=== PATIENT | male | born 1950 | race Caucasian/White ===

== ENCOUNTER 2018-07-29 13:58 | Inpatient (IN) ==
[2018-07-29] MEDS ORDERED: Naloxone 0.4 MG/ML INJ IVP PRN ×2 (16:17→17:14)
--- NOTE | 2018-07-29 16:26 | Internal Med History&Physical ---
<Kim Galvez - Last Filed: 07/29/18 18:29> Date of Encounter: 07/29/18 Time of Encounter: 16:24 Internal Medicine - H&P: HPI Chief complaint: Shortness of breath Admitted From: Hospital to Hospital Transfer (From [facility]) Plans for Post Hospital Care: Transfer [facility] History of present illness: Mr. 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 Apparently the patient's trach size was change from 6 to 8 by the ENT physician Dr. Ny last week. Upon review of medical records from [facility] he initially presented to the ED complaining of shortness of breath. He had increased congestion and cough of the past 3 days. Initial vitals were BP 131/62, SpO2 95% on room air, RR 17, temperature 98.7F. Chest x-ray showed mild congestive heart failure. Initial labs 07/27/2018 Potassium 3.4, sodium 133, cardiac enzymes normal, WBC 15. UA unremarkable. He was admitted for acute diastolic heart failure exacerbation and acute bronchitis, and that was treated for aspiration pneumonia after aspirating food multiple times while in patient. The patient was given IV Solu-Medrol 40 Q8H, Zosyn, Lasix 60 mg Q12H. Labs on 07/29/2018: WBC 13.9, hemoglobin 12.2, sodium 137, potassium 2.9, creatinine 0. 94. Upon my examination of the patient he reported that he went to [facility] primarily due to difficulty eating because of choking with the recent change of his trach size. He stated that about 3 weeks ago his trach size was changed from 8 to and 6 by physician in the [place] [facility] office. After that change in size he had an air leak around the trach that never closed up so then a week ago he went back to the office and Dr. Ny changed the size back from 6 to 8. He said that at that change they did not have a valve at the time and since then he has to use his fingers to work as the valve had. He has difficulty breathing at night because the valve closes. He also has difficulty swallowing food and often coughs up food even when his pures it. He reported having increased shortness of breath for 2 weeks along with increased lower extremity edema for a few months. He admits to productive cough of food and sometimes quite sputum. He is supposed to be taking Lasix daily however he is noncompliant and has not taken it for multiple weeks due to he is incontinence in it worsens it. He denies fever, chills, malaise, myalgias, nausea, vomiting, chest pain, palpitations abdominal pain. He stated that he has been admitted in the past for aspiration pneumonia a long time ago. He resides at home with his and is wheelchair-bound and cannot walk. 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 The last time he had steroids to treat the rash was over 2 months ago. He denies smoking, drug use, alcohol use. He has family history of mother having [place]. He is a full code. Past Med Surg Social Fam HX - Past Medical History Attestation: Yes The following information was validated with the patient. Source: patient Medical history: arthritis, DVT, diabetes, hyperlipidemia, hypertension, pulmonary embolus, thyroid disease, other Additional medical history: right leg cellulitis 11/13/16, alfredo/alfredo disease, sleep apnea Psychiatric history: no psych history - Past Surgical History Surgical History: tracheostomy Additional surgical history: trach due to sleep apnea, reversal - Social History Smoking Status: Never smoker Smokeless Tobacco Status: No Alcohol use: none Drug use: none - Family History Daughter Living Status: Hx Family Cardiac Disorders: Yes Hx Family Endocrine Disorder: Yes Father Living Status: Hx Family Cardiac Disorders: Yes Internal Medicine - H&P: Meds Atorvastatin [Lipitor] 40 mg PO HS 08/23/16 [History] Citalopram [CeleXA] 30 mg PO DAILY 08/23/16 [History] Hydrochlorothiazide [Microzide] 25 mg PO DAILY 08/23/16 [History] Insulin NPH Hum/Reg Insulin Hm [Humulin 70/30 Kwikpen] 50 unit SQ HS 08/23/16 [History] Insulin NPH Hum/Reg Insulin Hm [Humulin 70/30 Kwikpen] 70 unit SQ QAM 08/23/16 [History] Levothyroxine [Synthroid] 50 mcg PO 0630 08/23/16 [History] Tramadol HCl [Ultram] 50 mg PO BID PRN 08/23/16 [History] Warfarin [Coumadin] 9 mg PO 1800 08/23/16 [History] Fexofenadine/Pseudoephedrine [Nova-D 24 Hour Tablet] 1 each PO DAILY 01/19/18 [History] Losartan [Cozaar] 100 mg PO DAILY 01/19/18 [History] Aspirin [Lo-Dose Aspirin EC] 81 mg PO DAILY 07/29/18 [History] Citalopram Hydrobromide [Citalopram HBr] 20 mg PO BID 07/29/18 [History] Clobetasol Propionate 0.05% 1 appl BID 07/29/18 [History] Furosemide [Lasix] 40 mg PO DAILY 07/29/18 [History] Humulin 70-30 Vial 65 units SQ HS 07/29/18 [History] Humulin 70-30 Vial 80 units SQ QAM 07/29/18 [History] Hydroxyzine HCl 10 mg PO DAILY 07/29/18 [History] Xarelto 20 mg PO DAILY 07/29/18 [History] Allergy/AdvReac Type Severity Reaction Status Date / Time No Known Allergies Allergy Verified 11/16/16 12:41 All Systems PM: A 10-system review of systems was performed and is negative for pertinent findings except as documented above in the HPI. - Constitutional Constitutional: no chills, no fever(s) - EENT Eyes: no change in vision Nose, mouth and throat: dysphagia, no odynophagia - Cardiovascular Cardiovascular ROS IM: edema, no chest pain, no diaphoresis, no palpitations - Respiratory Respiratory: cough, dyspnea, change in phlegm color, no wheezing - Gastrointestinal Gastrointestinal: no abdominal pain, no nausea, no vomiting - Genitourinary Genitourinary ROS male: urinary incontinence, no dysuria - Integumentary Integumentary IM: skin ulcer (Right heel) - Neurological Neurological ROS: no disequilibrium, no dizziness - Constitutional Exam: Gen.: Vitals noted. No acute distress. AAOx3, morbidly obese HEENT: oropharynx clear, Normocephalic, atraumatic Neck: trach collar Cardiac: RRR, no murmur, +S1/S2 Pulmonary: CTA bilaterally, no wheezes, rales or rhonchi, equal chest expansion Abdomen: soft, nontender, Bowel sounds noted, no guarding MSK: no joint swelling noted, Extremities: +1 BLE edema, nontender calf, no cyanosis or clubbing, venous stasis dermatitis Neuro: A&Ox3, moves all extremities, no focal deficits Psych: Appropriate mood and behavior Internal Med - H&P Results - Labs CBC & Chem 7: 07/29/18 16:36 07/29/18 16:36 - Assessment and Plan (1) Acute respiratory failure Current Visit: Yes Status: Acute Assessment and plan: Patient presented with acute respiratory failure those likely precipitated by aspiration pneumonia secondary to dysphagia with foods and presumed acute on chronic congestive heart failure exacerbation as the patient has had increased s hortness breath of the past 2 weeks and bilateral lower extremity edema for the past few months. -SpO2 95% on 6 L with trach collar -afebrile, hemodynamically stable -WBC 14.3 -VBG: pH 7.5, CO2 40, O2 137, HCO3 31 -CXR demonstrated low lung volumes no cardio pulmonary process Plan -continue Zosyn -continue Solu-Medrol 40 IV daily -continue Lasix 40 IV daily -duonebs PRN -echocardiogram ordered -strep/legionella ordered -sputum culture ordered -continue supplemental oxygen with tracheostomy Qualifiers: Respiratory failure complication: hypoxia Qualified Code(s): J96.01 - Acute respiratory failure with hypoxia (2) Dysphagia Current Visit: Yes Status: Acute Assessment and plan: Patient reports having dysphagia since his trach size was changed. The patient's trach size was change from 6 to 8 by the ENT physician Dr. Ny last week a nd since then he is had dysphagia. He has difficulty swallowing even pured foods. Plan - ENT his consulted to evaluate the patient. With recommendations for speech therapy to place a paayeruir valve. -Will have speech therapy evaluate the patient and place a paayeruir valve. -NPO Qualifiers: Dysphagia type: pharyngeal phase Qualified Code(s): R13.13 - Dysphagia, pharyngeal phase (3) Aspiration pneumonia Current Visit: Yes Status: Acute Assessment and plan: Concern for aspiration pneumonia as he has been having dysphagia with food even pured foods. -Chest x-ray low lung volumes and no cardio pulmonary process. -NPO -continue Zosyn -speech therapy consulted to place valve Qualifiers: Aspiration pneumonia type: due to regurgitated food Qualified Code(s): J69.0 - Pneumonitis due to inhalation of food and vomit (4) H/O tracheostomy Current Visit: Yes Status: Acute Assessment and plan: History of tracheostomy secondary to STEPHANIE patient reports. Follows in the [place] [facility] office. Recent tracheostomy size change. (5) CHF exacerbation Current Visit: Yes Status: Acute Assessment and plan: Concern for congestive heart failure exacerbation. He has increased shortness of breath and lower extremity edema. He is supposed to be taking Lasix however he is noncompliant due to incontinence. He denies history of having congestive heart failure. -Chest x-ray at [place] demonstrated findings suggestive of CHF exacerbation -troponin's negative -EKG reviewed and should NSR, left axis deviation, poor are wave progression. No ST or T wave changes indicating ischemia -bilateral lower extremities had +1 edema Plan -continue diuresis with Lasix 40 IV daily -echocardiogram pending -strict I&O -will follow fluid restrictive diet however he is NPO now Qualifiers: Heart failure type: unspecified Qualified Code(s): I50.9 - Heart failure, unspecified (6) Hypokalemia Current Visit: Yes Status: Acute Assessment and plan: Hypokalemia with potassium of 3.1 at admission. -Magnesium 1.6 -will supplement both potassium and magnesium -will continue to monitor (7) Hadley-hadley disease Current Visit: Yes Status: Acute Assessment and plan: History of Hadley Hadley disease for which she has rash and skin breakdown in the axilla and skin folds. He follows with a narcotics agent will prescribe him steroids for about a week. Last time he had steroids was over 2 months ago. (8) Diabetes Current Visit: Yes Status: Acute Assessment and plan: History of diabetes taking insulin. -Glucose stable -continue Accu check -low-dose sliding scale insulin -currently NPO but will plan for diabetic diet when able Qualifiers: Diabetes mellitus type: type 2 Diabetes mellitus correction insulin use: correction use Qualified Code(s): E11.9 - Type 2 diabetes mellitus without complications; Z79.4 - meterman (current) use of insulin (9) Morbid obesity Current Visit: Yes Status: Acute Assessment and plan: Lifestyle changes. Patient does not walk and his wheelchair-bound. -PT/OT to evaluate (10) History of pulmonary embolus (PE) Current Visit: Yes Status: Acute Assessment and plan: Patient history of DVT and PE taking Xarelto. Continue home medication (11) Open wound of heel Current Visit: Yes Status: Acute Assessment and plan: Right heel wound on admission. He has been treating at home. -Consult wound care to manage heel wound Qualifiers: Encounter type: initial encounter Laterality: right Qualified Code(s): S91.301A - Unspecified open wound, right foot, initial encounter (12) DVT prophylaxis Current Visit: Yes Status: Acute Assessment and plan: On Xarelto (13) Hypertension Current Visit: Yes Status: Acute Assessment and plan: History of hypertension taking losartan. -Blood pressure stable -Patient is NPO so will order PRN Lopressor Qualifiers: Hypertension type: essential hypertension Qualified Code(s): I10 - Essential (primary) hypertension - Time Spent With Patient Total time spent is greater than 50% in coordination of care (as documented) at patient's floor/unit and/or counseling patient: <Jennifer Bales - Last Filed: 07/30/18 07:16> Date of Encounter: 07/30/18 Internal Medicine - H&P: HPI History of present illness: Mr. Bautista is a 68 year old male All Systems PM: A 10-system review of systems was performed and is negative for pertinent findings except as documented above in the HPI. - Constitutional Vitals: Temp Pulse Resp BP Pulse Ox 98.6 F 82 18 105/77 93 07/30/18 05:08 07/30/18 05:08 07/30/18 05:08 07/30/18 05:08 07/30/18 05:08 Internal Med - H&P Results - Labs CBC & Chem 7: 07/29/18 16:36 07/29/18 16:36 Labs: Short CBC 07/29/18 Range/Units 16:36 WBC 14.3 H (4.3-11.1) K/mcL Hgb 12.3 L (12.9-16.9) g/dL Hct 38.2 (37.5-50.1) % Plt Count 310 (140-400) K/mcL Neutrophils # 12.7 H (1.6-8.9) K/mcL BMP 07/29/18 16:36 Sodium 140 Potassium 3.1 L Chloride 96 L Carbon Dioxide 32 H BUN 26 H Creatinine 1.00 Glucose 152 H Calcium 9.2 Liver Function 07/29/18 Range/Units 16:36 Total Bilirubin 0.4 (0.3-1.0) mg/dL AST 11 L (13-39) Units/L ALT 11 (7-52) Units/L Alkaline Phosphatase 72 (34-104) Units/L Albumin 3.4 L (3.5-5.7) g/dL - ABG Interpretation ABG results: 07/29/18 16:49 VBG pH 7.50 H VBG pCO2 40 L VBG pO2 137 H VBG HCO3 31 H - Impressions ITS Impressions Chest X-Ray 07/29/18 16:42 IMPRESSION: Low lung volumes. No acute cardiopulmonary disease. 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 use: with middle or intermediate school principal use Qualified Code(s): E11.9 - Type 2 diabetes mellitus without complications; Z79.4 - [facility]CI (current) use of insulin (3) History of pulmonary embolus (PE) Current Visit: Yes Status: Acute (4) DVT prophylaxis Current Visit: Yes Status: Acute (5) Dysphagia Current Visit: Yes Status: Acute Qualifiers: Dysphagia type: pharyngeal phase Qualified Code(s): R13.13 - Dysphagia, pharyngeal phase (6) Acute respiratory failure Current Visit: Yes Status: Acute Qualifiers: Respiratory failure complication: hypoxia Qualified Code(s): J96.01 - Acute respiratory failure with hypoxia (7) CHF exacerbation Current Visit: Yes Status: Acute Qualifiers: Heart failure type: unspecified Qualified Code(s): I50.9 - Heart failure, unspecified (8) Aspiration pneumonia Current Visit: Yes Status: Acute Qualifiers: Aspiration pneumonia type: due to regurgitated food Qualified Code(s): J69.0 - Pneumonitis due to inhalation of food and vomit (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 (10) Morbid obesity Current Visit: Yes Status: Acute (11) Hypokalemia Current Visit: Yes Status: Acute (12) Open wound of heel Current Visit: Yes Status: Acute Qualifiers: Encounter type: initial encounter Laterality: right Qualified Code(s): S91.301A - Unspecified open wound, right foot, initial encounter (13) Hypertension Current Visit: Yes Status: Acute Qualifiers: Hypertension type: essential hypertension Qualified Code(s): I10 - Essential (primary) hypertension - Time Spent With Patient Total time spent is greater than 50% in coordination of care (as documented) at patient's floor/unit and/or counseling patient: - Attending Attestation I examined this patient and my medical decision-making was reviewed with the Resident Physician Dr Galvez. I agree with the documented findings, disposition and treatment plan as described except to the extent set forth below. Mr Bautista was transferred from [place] and is being admitted for respiratory failure and suspected aspiration pna with dysphagia awake, pleasant, no sob currently. denies any wheezing, + sputum white/yellow, + le edema. denies any chest pain, pressure, palpitations, calf pain. no prior hx chf though was started on lasix outpt for le edema gen- alert, awake,appears stated age eyes- pupils equal round cv- reg rate and rhythm, normal s1,s2, no murmurs appreciated, trace pitting le edema lungs- ctabl, diminsihed throughout, no wheezing, rhonchi or crackles, normal resp effort on trach collar abd- soft, non tender, non distended, + bs neuro- AAOx3, CN grossly intact Acute hypoxic resp failure as evidenced by O2 requirement (none at home) Suspected Aspiration pna ruled out ACS, PE unlikely given anticoagulated possible CHF, no prior hx possibly related to recent trach change (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) -cont zosyn, repeat CXR, attempt to ID organism -no prior echo,check here, cont IV lasix -ekg done today without acute ischemic changes, trops neg at OSH -cont o2 trach collar -ENT Dr Ramirez notified prior to transfer and to be notified by bed management pt here, consult eval pending Aspiration suspected as reported by OSH as being witnessed/suction food from trach- keep npo, ent eval then after will obtain family practice doctor eval, avioding any po meds that are not essential tonight, was taking po meds with applesauce at OSH Hypokalemia- IV repletion DM- SSI, prn hypoglycemics DVT/PE hx on AC- cont xarelto Hadley- Hadley Disease- wound care c/s Morbid Obesity BMI 48.5- lifestyle modifications, pcp follow up, nutrition further dx and plan as noted by resident
--- NOTE | 2018-07-29 16:37 | Event Note ---
Date of Encounter: 07/29/18 Time of Encounter: 17:15 to serve as attending attestation pending completion of resident H&P I examined this patient and my medical decision-making was reviewed with the Resident Physician Dr Galvez. I agree with the documented findings, disposition and treatment plan as described except to the extent set forth below. Mr Bautista was transferred from [place] and is being admitted for respiratory failure and suspected aspiration pna with dysphagia awake, pleasant, no sob currently. denies any wheezing, + sputum white/yellow, + le edema. denies any chest pain, pressure, palpitations, calf pain. no prior hx chf though was started on lasix outpt for le edema gen- alert, awake,appears stated age eyes- pupils equal round cv- reg rate and rhythm, normal s1,s2, no murmurs appreciated, trace pitting le edema lungs- ctabl, diminsihed throughout, no wheezing, rhonchi or crackles, normal resp effort on trach collar abd- soft, non tender, non distended, + bs neuro- AAOx3, CN grossly intact Acute hypoxic resp failure as evidenced by O2 requirement (none at home) Suspected Aspiration pna ruled out ACS, PE unlikely given anticoagulated possible CHF, no prior hx possibly related to recent trach change (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) -cont zosyn, repeat CXR, attempt to ID organism -no prior echo,check here, cont IV lasix -ekg done today without acute ischemic changes, trops neg at OSH -cont o2 trach collar -ENT Dr Ramirez notified prior to transfer and to be notified by bed management pt here, consult eval pending Aspiration suspected as reported by OSH as being witnessed/suction food from trach- keep npo, ent eval then after will obtain operations planner eval, avioding any po meds that are not essential tonight, was taking po meds with applesauce at OSH Hypokalemia- IV repletion DM- SSI, prn hypoglycemics DVT/PE hx on AC- cont xarelto Keyla- Keyla Disease- wound care c/s Morbid Obesity BMI 48.5- lifestyle modifications, pcp follow up, nutrition further dx and plan as noted by resident
[2018-07-29 16:45] LABS: Basophils % 0.1 %; Hematocrit 38.2 % (37.5-50.1); Hemoglobin 12.3 g/dL (12.9-16.9); Immature Granulocytes % 0.4 % (0-4); Lymphocytes # 0.9 K/mcL (0.6-4.6); Lymphocytes % 6.3 %; Mean Corpuscular HGB Conc 32.2 g/dL (31.6-35.5); Mean Corpuscular Hemoglobin 25.6 pg (28.0-33.3); Mean Corpuscular Volume 79.4 fL (83.0-100.0); Monocytes # 0.7 K/mcL (0.0-1.3); Monocytes % 4.8 %; Neutrophils # 12.7 K/mcL (1.6-8.9); Platelet Count 310 K/mcL (140-400); Red Blood Count 4.81 M/mcL (4.19-5.50); Red Cell Distribution Width 15.6 % (11.5-14.5); Segmented Neutrophils % 88.4 %; White Blood Count 14.3 K/mcL (4.3-11.1)
[2018-07-29 16:51] LABS: VBG HCO3 31 mEq/L (21-27); VBG PCO2 40 mmHg (41-51); VBG PO2 137 mmHg (25-50)
[2018-07-29 16:53] LABS: INR 1.4; Prothrombin Time 15.4 Seconds (9.4-12.1)
[2018-07-29 17:05] LABS: Alanine Aminotransferase 11 Units/L (7-52); Albumin 3.4 g/dL (3.5-5.7); Albumin/Globulin Ratio 0.9 (1.1-2.2); Alkaline Phosphatase 72 Units/L (34-104); Aspartate Amino Transferase 11 Units/L (13-39); BUN/Creatinine Ratio 26 (6-26); Bilirubin,Total 0.4 mg/dL (0.3-1.0); Blood Urea Nitrogen 26 mg/dL (8-23); Calcium 9.2 mg/dL (8.6-10.3); Carbon Dioxide 32 mEq/L (23-29); Chloride 96 mEq/L (98-107); Globulin 3.9 g/dL (2.4-3.5); Glucose 152 mg/dL (70-105); Magnesium 1.6 mg/dL (1.6-2.6); Osmolality,Calculated 298 (280-300); Potassium 3.1 mEq/L (3.5-5.1); Sodium 140 mEq/L (136-145); Total Protein 7.3 g/dL (6.4-8.9); eGFR For African Americans > 60 (> 60); eGFR For Non-African Americans > 60 (> 60)
[2018-07-29] MEDS ORDERED: D5% in Water 1,000 ML IVC PRN (17:08)
[2018-07-29] MEDS ORDERED: *HR* Dextrose 50 % in Water (Syg) 50 ML SYRINGE IVP PRN (17:08)
[2018-07-29] MEDS ORDERED: Dextrose Gel 15 GM/37.5 ML TUBE PO PRN ×2 (17:08)
[2018-07-29] MEDS ORDERED: *HR* Metoprolol 5 MG/5 ML VIAL IVP PRN ×2 (17:37→17:47)
[2018-07-29] MEDS ORDERED: Ipratropium/Albuterol Neb 3 ML IH PRN (17:37)
[2018-07-29] MEDS ORDERED: Potassium Chloride 40 MEQ, Lidocaine 1% 2 ML in D5% in Water 500 ML IVPB ONE (17:37)
--- NOTE | 2018-07-29 18:11 | ENT - Consult Note ---
Date of Encounter: 07/29/18 Time of Encounter: 18:06 Assessment and Plan (1) Tracheostomy dependence Current Visit: Yes Status: Acute Tracheo broncscopy performed at bedside: The flexible tracheobronchoscope was first inserted into the tracheostomy tube to assure proper placement of the tube and to examine the tracheostomy tube for possible obstruction. The tracheostomy tube was then removed and the flexible tracheobronchoscopy tube as inserted into the tracheostoma to first look for granulation tissue around the stoma. The scope is then advanced to look for possible vascular exposure and possible in nominate artery rupture. Examination of the posterior wall of the trachea is next performed to examine for granulation tissue developing from constant rubbing of the tube on the posterior tracheal wall. The scope is then advanced to look for a possible mucous plug, dried mucous secretions, bleeding sites, tracheomalacia or tracheal mucosal lesions.The scope was then removed and a new tracheostomy tube was placed. The patient tolerated the procedure well without complication or incident. Findings: trach tube in place, dilma visualized, main stem bronchi visualized no drainage, bleeding or masses noted. Recommend conultation for Speech therapy and placement of passay-giancarlo valve. Although patient's symptoms increased over the past week, the patient has previously had [address] for many years. At this time, I do not feel that the trach should be downsized again. Routine trach care with frequent suctioning. (2) Aspiration pneumonia Current Visit: Yes Status: Acute Continue NPO diet. Recommend Speech Therapy evaluation for swallow evalution to determine consistency of food that is safe for patient. If he experiencences aspiration on all consistencies, would consider placement of NG for nuturition and evaluation for PEG tube. Antibiotic regimen per Primary Team. Qualifiers: Qualified Code(s): J69.0 - Pneumonitis due to inhalation of food and vomit (3) STEPHANIE (obstructive sleep apnea) Current Visit: Yes Status: Acute As noted above. Patient has tracheostomy tube placement at for night time to bypass upper airway obstruction. He is able to use passay-giancarlo valve during awake hours History of Present Illness Reason for ENT Consult: airway complication (Tracheostomy management) Requesting physician: Jennifer Bales History of present illness: This is a 68-year-old gentleman who was admitted to the hospital for aspiration pneumonia and cough. The patient was transferred from outside facility and ENT is being asked to evaluate the tracheostomy and give recommendations for trach care. The patient has had a trach for 40+ years for obstructive sleep apnea. During the day, the patient uses a Pass[place] valve however his trach was ch anged from a size 6 Shiley to a size 8 Shiley approximately 1 week ago. During that time he has not been able to obtain a Passy-[place] valve although a prescription was written for him in the office on 2018. The patient states that over the past week his had increased amount of coughing and states that he has had food particles expelled from the tracheostomy tube. Prior to the upsizing of the 8 Shiley, the patient had a [address] for approximately 4 months, and prior to that the patient had an [address] for approximately 40 years. The 60 tube was moving around and causing a significant amount of air escape around the tube. The patient states that although he has had increased coughing and food particles expelling from the tracheostomy tube over the past week, this has been present for approximately 1 year. He denies fevers but does admit to malaise. He admits to productive cough. He denies any sensation that the inner cannula is occluded and he is taking proper care of his device. While the patient was at the outside hospital he was seen by speech therapy and swallow evaluation was done and it appears that the patient was aspirating. The recommended diet was pureed. Past Med Surg Social Fam HX - Past Medical History Medical history: arthritis, diabetes, hyperlipidemia, hypertension, thyroid disease, other Additional medical history: right leg cellulitis 11/13/16, alfredo/alfredo disease, sleep apnea Psychiatric history: no psych history - Past Surgical History Surgical History: tracheostomy Additional surgical history: trach due to sleep apnea, reversal - Social History Smoking Status: Never smoker Smokeless Tobacco Status: No Alcohol use: none Drug use: none - Family History Daughter Living Status: Hx Family Cardiac Disorders: Yes Hx Family Endocrine Disorder: Yes Father Living Status: Hx Family Cardiac Disorders: Yes Medications and Allergies Atorvastatin [Lipitor] 40 mg PO HS 08/23/16 [History] Citalopram [CeleXA] 30 mg PO DAILY 08/23/16 [History] Hydrochlorothiazide [Microzide] 25 mg PO DAILY 08/23/16 [History] Insulin NPH Hum/Reg Insulin Hm [Humulin 70/30 Kwikpen] 50 unit SQ HS 08/23/16 [History] Insulin NPH Hum/Reg Insulin Hm [Humulin 70/30 Kwikpen] 70 unit SQ QAM 08/23/16 [History] Levothyroxine [Synthroid] 50 mcg PO 0630 08/23/16 [History] Tramadol HCl [Ultram] 50 mg PO BID PRN 08/23/16 [History] Warfarin [Coumadin] 9 mg PO 1800 08/23/16 [History] Fexofenadine/Pseudoephedrine [Nova-D 24 Hour Tablet] 1 each PO DAILY 01/19/18 [History] Losartan [Cozaar] 100 mg PO DAILY 01/19/18 [History] Aspirin [Lo-Dose Aspirin EC] 81 mg PO DAILY 07/29/18 [History] Citalopram Hydrobromide [Citalopram HBr] 20 mg PO BID 07/29/18 [History] Clobetasol Propionate 0.05% 1 appl BID 07/29/18 [History] Furosemide [Lasix] 40 mg PO DAILY 07/29/18 [History] Humulin 70-30 Vial 65 units SQ HS 07/29/18 [History] Humulin 70-30 Vial 80 units SQ QAM 07/29/18 [History] Hydroxyzine HCl 10 mg PO DAILY 07/29/18 [History] Xarelto 20 mg PO DAILY 07/29/18 [History] Allergy/AdvReac Type Severity Reaction Status Date / Time No Known Allergies Allergy Verified 11/16/16 12:41 ENT - ROS - EENT Nose, mouth and throat: dysphagia, nasal congestion, sinus pain - Cardiovascular Cardiovascular ROS IM: dyspnea, edema - Respiratory cough, dyspnea, change in phlegm color - Gastrointestinal Gastrointestinal: no coffee ground emesis, no constipation, no diarrhea, no dyspepsia, no dysphagia, no heartburn, no nausea, no odynophagia, no vomiting - Genitourinary Genitourinary ROS: urinary frequency, urinary incontinence - Musculoskeletal Musculoskeletal ROS: no abnormal gait, no muscle weakness, no myalgias, no neck pain, no numbness, no stiffness, no tingling - Neurological Neurological ROS: no abnormal gait, no abnormal hearing, no abnormal speech, no disequilibrium, no dizziness, no focal weakness, no frequent falls, no headache(s), no lack of coordination, no numbness, no paresthesias, no restless legs, no syncope, no tingling, no tremor(s), no vertigo, no weakness - Psychiatric Psychiatric general: no abnormal sleep pattern, no anxiety, no auditory hallucinations - Endocrine Endocrine: no cold intolerance, no deeping of the voice, no excessive sweating, no fatigue, no flushing, no heat intolerance, no palpitations, no polydipsia, no polyphagia, no polyuria - Hematologic/Lymphatic no easy bleeding, no easy bruising, no lymphadenopathy ENT Exam Initial Vital Signs Temp Pulse Resp BP Pulse Ox 98 F 77 18 160/98 95 07/29/18 16:23 07/29/18 16:23 07/29/18 16:23 07/29/18 16:23 07/29/18 16:23 - Additional Findings CONSTITUTIONAL: Well developed. Well nourished. No acute distress . HEAD: No masses or lesions. No tenderness to palpation over the maxillary and frontal sinuses. Parotid and Submandibular salivary glands are symmetric. Facial strength is symmetric, House-Brachman I/ bilaterally . EYES: Conjunctiva without injection. Lids normal in apperance. Extraocular movements intact. Primary gaze normal . NECK:8 Proximal XLT Shiley in place, patent and in proper position. No cervical lymphadenopathy. No neck mass. No crepitus. Symmetric. Trachea is midline. No thyroid enlargement, tenderness, or mass. NEUROLOGIC: III/IV/- intact and symmetric. V1, V2, V3- symmectric, sensation intact bilaterally. House-Brackman I/ on Left. House-Brackman I/ on Right. IX-velum elevates symetrically. X-voice is phonic. XI/XII-symmetric mobility . PSYCH: Patient is oriented to person, place and time. Mood and affect apper normal for age and mental capacity . RESPIRATORY: Respiratory effort is normal. Respiratory expansion is symmetric . APPEARANCE: Well devolped,well nourished. Appears to be stated age . CARDIOVASCULAR No JVD noted. Carotid pulse 2+. Bilateral lower extremity edema Exam Initial Vital Signs Temp Pulse Resp BP Pulse Ox 98 F 77 18 160/98 95 07/29/18 16:23 07/29/18 16:23 07/29/18 16:23 07/29/18 16:23 07/29/18 16:23 Results - Labs 07/29/18 16:36 07/29/18 16:36 Abnormal lab results WBC 14.3 K/mcL (4.3-11.1) H 07/29/18 16:36 Hgb 12.3 g/dL (12.9-16.9) L 07/29/18 16:36 MCV 79.4 fL (83.0-100.0) L 07/29/18 16:36 MCH 25.6 pg (28.0-33.3) L 07/29/18 16:36 RDW 15.6 % (11.5-14.5) H 07/29/18 16:36 MPV 9.0 fL (9.4-12.4) L 07/29/18 16:36 12.7 K/mcL (1.6-8.9) H 07/29/18 16:36 PT 15.4 Seconds (9.4-12.1) H 07/29/18 16:36 VBG pH 7.50 pH Units (7.32-7.42) H 07/29/18 16:49 VBG pCO2 40 mmHg (41-51) L 07/29/18 16:49 VBG pO2 137 mmHg (25-50) H 07/29/18 16:49 VBG HCO3 31 mEq/L (21-27) H 07/29/18 16:49 Potassium 3.1 mEq/L (3.5-5.1) L 07/29/18 16:36 Chloride 96 mEq/L (98-107) L 07/29/18 16:36 Carbon Dioxide 32 mEq/L (23-29) H 07/29/18 16:36 BUN 26 mg/dL (8-23) H 07/29/18 16:36 Glucose 152 mg/dL (70-105) H 07/29/18 16:36 AST 11 Units/L (13-39) L 07/29/18 16:36 3.4 g/dL (3.5-5.7) L 07/29/18 16:36 3.9 g/dL (2.4-3.5) H 07/29/18 16:36 0.9 (1.1-2.2) L 07/29/18 16:36 Diabetes panel 07/29/18 Range/Units 16:36 Sodium 140 (136-145) mEq/L Potassium 3.1 L (3.5-5.1) mEq/L Chloride 96 L (98-107) mEq/L Carbon Dioxide 32 H (23-29) mEq/L BUN 26 H (8-23) mg/dL Creatinine 1.00 (0.70-1.30) mg/dL Glucose 152 H (70-105) mg/dL Calcium 9.2 (8.6-10.3) mg/dL AST 11 L (13-39) Units/L ALT 11 (7-52) Units/L Alkaline Phosphatase 72 (34-104) Units/L Albumin 3.4 L (3.5-5.7) g/dL Calcium panel 07/29/18 Range/Units 16:36 Calcium 9.2 (8.6-10.3) mg/dL Albumin 3.4 L (3.5-5.7) g/dL Pituitary panel 07/29/18 Range/Units 16:36 Sodium 140 (136-145) mEq/L Potassium 3.1 L (3.5-5.1) mEq/L Chloride 96 L (98-107) mEq/L Carbon Dioxide 32 H (23-29) mEq/L BUN 26 H (8-23) mg/dL Creatinine 1.00 (0.70-1.30) mg/dL Glucose 152 H (70-105) mg/dL Calcium 9.2 (8.6-10.3) mg/dL Adrenal panel 07/29/18 Range/Units 16:36 Sodium 140 (136-145) mEq/L Potassium 3.1 L (3.5-5.1) mEq/L Chloride 96 L (98-107) mEq/L Carbon Dioxide 32 H (23-29) mEq/L BUN 26 H (8-23) mg/dL Creatinine 1.00 (0.70-1.30) mg/dL Glucose 152 H (70-105) mg/dL Calcium 9.2 (8.6-10.3) mg/dL Total Bilirubin 0.4 (0.3-1.0) mg/dL AST 11 L (13-39) Units/L ALT 11 (7-52) Units/L Alkaline Phosphatase 72 (34-104) Units/L Albumin 3.4 L (3.5-5.7) g/dL All other labs normal. Consult Discharge Plan - Plan Referrals: Richard Ying MD [Primary Care Provider] -
[2018-07-29] MEDS: Insulin LISPRO 300 UNITS/3 ML VIAL SQ SCH (18:16)
[2018-07-29] MEDS: Ipratropium/Albuterol Neb 3 ML IH SCH ×2 (20:17→23:49)
[2018-07-30] MEDS: Piperacillin/Tazobactam 3.375 GM in 0.9 % Sodium Chloride Mini Bag 100 ML IVPB SCH ×3 (00:09→16:37)
[2018-07-30] MEDS: Insulin LISPRO 300 UNITS/3 ML VIAL SQ SCH ×4 (00:19→16:38)
[2018-07-30] MEDS: Ipratropium/Albuterol Neb 3 ML IH SCH ×6 (04:03→23:12)
[2018-07-30] MEDS ORDERED: Perflutren Lipid Microsphere 1.3 ML in 0.9 % Sodium Chloride 8.7 ML IVP ONE (07:39)
--- NOTE | 2018-07-30 08:07 | Internal Med Progress Note ---
<Jennifer Bales - Last Filed: 07/30/18 09:49> Hospitalist Progress Note - Encounter Date of Encounter: 07/30/18 - Exam Vitals: Temp Pulse Resp BP Pulse Ox 98.1 F 80 12 138/88 96 07/30/18 07:28 07/30/18 07:28 07/30/18 07:28 07/30/18 07:28 07/30/18 07:28 - Assessment and Plan (1) H/O tracheostomy Current Visit: Yes Status: Acute (2) Diabetes Current Visit: Yes Status: Acute (3) History of pulmonary embolus (PE) Current Visit: Yes Status: Acute (4) DVT prophylaxis Current Visit: Yes Status: Acute (5) Dysphagia Current Visit: Yes Status: Acute (6) Acute respiratory failure Current Visit: Yes Status: Acute (7) CHF exacerbation Current Visit: Yes Status: Acute (8) Aspiration pneumonia Current Visit: Yes Status: Acute (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 (10) Morbid obesity Current Visit: Yes Status: Acute (11) Hypokalemia Current Visit: Yes Status: Acute (12) Open wound of heel Current Visit: Yes Status: Acute (13) Hypertension Current Visit: Yes Status: Acute - Time Spent with Patient Total time spent is greater than 50% in coordination of care (as documented) at patient's floor/unit and/or counseling patient: Internal Medicine: Result - Labs CBC & Chem 7: 07/29/18 16:36 07/29/18 16:36 Labs: Short CBC 07/29/18 Range/Units 16:36 WBC 14.3 H (4.3-11.1) K/mcL Hgb 12.3 L (12.9-16.9) g/dL Hct 38.2 (37.5-50.1) % Plt Count 310 (140-400) K/mcL Neutrophils # 12.7 H (1.6-8.9) K/mcL BMP 07/29/18 16:36 Sodium 140 Potassium 3.1 L Chloride 96 L Carbon Dioxide 32 H BUN 26 H Creatinine 1.00 Glucose 152 H Calcium 9.2 Liver Function 07/29/18 Range/Units 16:36 Total Bilirubin 0.4 (0.3-1.0) mg/dL AST 11 L (13-39) Units/L ALT 11 (7-52) Units/L Alkaline Phosphatase 72 (34-104) Units/L Albumin 3.4 L (3.5-5.7) g/dL - ABG Interpretation ABG results: PT/INR, D-dimer PT 15.4 Seconds (9.4-12.1) H 07/29/18 16:36 - Impressions Impressions Chest X-Ray 07/29/18 16:42 IMPRESSION: Low lung volumes. No acute cardiopulmonary disease. D/ / Lenard Weaver MD / Lenard Weaver MD Interpreting Provider: Lenard Weaver MD Consult Discharge Plan - Plan Referrals: Richard Ying MD [Primary Care Provider] - - Attending Attestation I examined this patient and my medical decision-making was reviewed with the Resident Physician Dr Blanc. I agree with the documented findings, disposition and treatment plan as described except to the extent set forth below. Mr Bautista was transferred from [place] and is being admitted for respiratory failure and suspected aspiration pna with dysphagia awake, sob stable with o2 via trach collar. + yellow secretions from trach. denies wheezing, + cough, denies fevers, chills, n/v. 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, as per Dr Schroeder recs, not related to trach, if can't pass [employer] for oral intake then consider TFs with NGT and peg placement STEPHANIE 2/2 Trach- appreciate ENT eval which was unremarkable, needs PMV DVT/PE hx on AC- cont xarelto [facility] Disease- wound care c/s to cont outpt wound care Morbid Obesity BMI 48.5- lifestyle modifications, pcp follow up, nutrition further dx and plan as noted by resident <Shelli Blanc - Last Filed: 07/30/18 18:23> Hospitalist Progress Note - Encounter Date of Encounter: 07/30/18 Time of Encounter: 09:34 - Subjective Interval History: Examined at bedside. Pt is awake and alert. Sitting in bed, appears comfortable. Complains of bilateral knee pain, but notes this is chronic. Denies pain elsewhere. Endorses no fevers, chills, chest pain, difficulty breathing. Pt would like to eat, but understands speech therapy needs to evaluate him first. P t reports ENT has already been in to see him this morning and planning to place a valve. - Exam Vitals: Temp Pulse Resp BP Pulse Ox 98.1 F 80 12 138/88 96 07/30/18 07:28 07/30/18 07:28 07/30/18 07:28 07/30/18 07:28 07/30/18 07:28 Exam: General: No acute distress, resting comfortably in bed HEENT: head normocephalic/atraumatic, EOMI, PERRL, sclera anicteric, moist mucus membranes Neck: tracheostomy noted, no drainage observed, receiving breathing treatment Cardio: RRR, no murmurs, +S1/S2 Pulm: Coarse breath sounds bilaterally, most prominent at LLL. Normal respiratory effort. Abdomen: soft, nontender, active bowel sounds, no distention Extremities: No LE edema, no calf tenderness, clubbing, warm Neuro: AAOx3, no focal deficit, CN II-XII grossly intact, moves all extremities spontaneously Skin: BLE venous stasis discoloration Psych: Appropriate mood and affect. Answers questions appropriately. Cooperative with exam - Assessment and Plan (1) Acute respiratory failure Current Visit: Yes Status: Acute Assessment and Plan: Acute respiratory failure most likely d/t aspiration secondary to dysphagia. On admission: Afebrile, spO2 95% on 6 L trach collar, hemodynamically stable, WBC 14.3; VBG pH 7.5, CO2 40, O2 137, HCO3 31. CXR shows no acute cardiopulmonary process, low lung volumes. Strep and legionella urine antigens negative. Echo shows LVEF 60-65%, mild LVDD; Doppler suggests moderate LVOT obstruction. - continue Zosyn 3.375 gm IVPB Q8H - continue Solu-Medrol 40 IVP daily - discontinue Lasix - duonebs PRN - sputum culture ordered - continue supplemental oxygen with tracheostomy (2) Aspiration pneumonia Current Visit: Yes Status: Acute Assessment and Plan: CXR shows no acute cardiopulmonary process, low lung volumes. Legionella and strep urinary antigens negative. Sputum culture collected, preliminary gram stain shows GNR. Received Zosyn at OSH before transfer to [place]. Speech therapy consulted, placed Passay-Anamika valve. Continue empiric Zosyn 3.375 gm IVPB Q8H for now. Monitor sputum culture for growth and final gram stain results. Speech therapy recommends advanced soft diet and nectar thick liquids. (3) Dysphagia Current Visit: Yes Status: Acute Assessment and Plan: Pt reports dysphagia since trach changed from size 6 to 8 Shiley by ENT one week prior to admission. Evaluated by speech therapy, [facility] 07/30/18 with recommendation for advanced soft diet and nectar thick liquids recommended. Per ENT consult note, they don't feel it's necessary to downsize trach as pt has previously tolerated trach of this size in past. Passay-Anamika valve in place. ADA diet ordered with consistencies per speech therapy recommendations. Speech therapy working with patient. ENT following, recommendations appreciated. (4) Diabetes Current Visit: Yes Status: Acute Assessment and Plan: Diabetic diet. Glucose check AC HS. Start Levemir 35 units HS. (5) CHF exacerbation Current Visit: Yes Status: Ruled-out Assessment and Plan: Ruled out, was suspected on admission. Not fluid overloaded on exam today. Echo shows LVEF 60-65%, mild LVDD; Doppler suggests moderate LVOT obstruction. Lasix discontinued. 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 Will continue home dose Xarelto. (8) Hadley-hadley disease Current Visit: Yes Status: Acute Assessment and Plan: History of familial benign pemphigus. Follows with dermatology outpatient. Routine monitoring and care for areas of skin breakdown. (9) Hypokalemia Current Visit: Yes Status: Acute Assessment and Plan: Potassium 3.1 on admission, given supplemental PO potassium and magnesium. Continue to monitor with morning BMP and supplement PRN. (10) Open wound of heel Current Visit: Yes Status: Acute Assessment and Plan: Right heel wound present on admission, has been treating at home. Wound care consulted to evaluate and manage, recommendations appreciated. (11) Hypertension Current Visit: Yes Status: Chronic Assessment and Plan: Controlled. Takes Losartan 50 mg PO daily at home, initially held d/t NPO status with order for Lopressor 5 mg IVP PRN. Restart home medication tomorrow. (12) H/O tracheostomy Current Visit: Yes Status: Acute - Time Spent with Patient Total time spent is greater than 50% in coordination of care (as documented) at patient's floor/unit and/or counseling patient: Internal Medicine: Result - Labs CBC & Chem 7: 07/30/18 12:20 07/30/18 12:20 Labs: Short CBC 07/29/18 Range/Units 16:36 WBC 14.3 H (4.3-11.1) K/mcL Hgb 12.3 L (12.9-16.9) g/dL Hct 38.2 (37.5-50.1) % Plt Count 310 (140-400) K/mcL Neutrophils # 12.7 H (1.6-8.9) K/mcL BMP 07/29/18 16:36 Sodium 140 Potassium 3.1 L Chloride 96 L Carbon Dioxide 32 H BUN 26 H Creatinine 1.00 Glucose 152 H Calcium 9.2 Liver Function 07/29/18 Range/Units 16:36 Total Bilirubin 0.4 (0.3-1.0) mg/dL AST 11 L (13-39) Units/L ALT 11 (7-52) Units/L Alkaline Phosphatase 72 (34-104) Units/L Albumin 3.4 L (3.5-5.7) g/dL - ABG Interpretation ABG results: PT/INR, D-dimer PT 15.4 Seconds (9.4-12.1) H 07/29/18 16:36 - Impressions Impressions Chest X-Ray 07/29/18 16:42 IMPRESSION: Low lung volumes. No acute cardiopulmonary disease. D/ / Lenard Weaver MD / Lenard Weaver MD Interpreting Provider: Lenard Weaver MD <Jennifer Bales - Last Filed: 07/30/18 09:49> (2) Diabetes Qualifiers: Diabetes mellitus type: type 2 Diabetes mellitus joint terminal attack controller insulin use: with nursing home use Qualified Code(s): E11.9 - Type 2 diabetes mellitus without complications (5) Dysphagia Qualifiers: Dysphagia type: pharyngeal phase Qualified Code(s): R13.13 - Dysphagia, pharyngeal phase (6) Acute respiratory failure Qualifiers: Respiratory failure complication: hypoxia Qualified Code(s): J96.01 - Acute respiratory failure with hypoxia (7) CHF exacerbation Qualifiers: Heart failure type: unspecified Qualified Code(s): I50.9 - Heart failure, unspecified (8) Aspiration pneumonia Qualifiers: Aspiration pneumonia type: due to regurgitated food Qualified Code(s): J69.0 - Pneumonitis due to inhalation of food and vomit (12) Open wound of heel Qualifiers: Encounter type: initial encounter Laterality: right Qualified Code(s): S91.301A - Unspecified open wound, right foot, initial encounter (13) Hypertension Qualifiers: Hypertension type: essential hypertension Qualified Code(s): I10 - Essential (primary) hypertension <Shelli Blanc - Last Filed: 07/30/18 18:23> (1) Acute respiratory failure Qualifiers: Respiratory failure complication: hypoxia Qualified Code(s): J96.01 - Acute respiratory failure with hypoxia (2) Aspiration pneumonia Qualifiers: Aspiration pneumonia type: due to regurgitated food (3) Dysphagia Qualifiers: Dysphagia type: pharyngeal phase Qualified Code(s): R13.13 - Dysphagia, pharyngeal phase (4) Diabetes Qualifiers: Diabetes mellitus type: type 2 Diabetes mellitus joint terminal attack controller insulin use: with nursing home use (5) CHF exacerbation Qualifiers: Heart failure type: unspecified Qualified Code(s): I50.9 - Heart failure, unspecified (10) Open wound of heel Qualifiers: Encounter type: initial encounter Laterality: right Qualified Code(s): S91.301A - Unspecified open wound, right foot, initial encounter (11) Hypertension Qualifiers: Hypertension type: essential hypertension Qualified Code(s): I10 - Essential (primary) hypertension
[2018-07-30] MEDS ORDERED: Furosemide 40 MG/4 ML VIAL IVP SCH (09:00)
[2018-07-30] MEDS: MethylPREDNISolone 40 MG/ML VIAL IVP SCH (09:13)
[2018-07-30] MEDS ORDERED: E-Z-HD (BARIUM SULF) SUSPENSION PO ONE (10:50)
[2018-07-30] MEDS ORDERED: E-Z-PAQUE (BARIUM SULF) SUSP 1 BOTTLE PO ONE (10:50)
[2018-07-30] MEDS: *HR* Rivaroxaban 10 MG TABLET PO SCH (12:12)
[2018-07-30] MEDS: Aspirin Enteric Coated 81 MG Tablet PO SCH (12:12)
[2018-07-30 13:15] LABS: BUN/Creatinine Ratio 28 (6-26); Blood Urea Nitrogen 30 mg/dL (8-23); Calcium 9.2 mg/dL (8.6-10.3); Carbon Dioxide 32 mEq/L (23-29); Chloride 97 mEq/L (98-107); Glucose 235 mg/dL (70-105); Magnesium 1.9 mg/dL (1.6-2.6); Osmolality,Calculated 306 (280-300); Potassium 3.2 mEq/L (3.5-5.1); Sodium 141 mEq/L (136-145); eGFR For African Americans > 60 (> 60); eGFR For Non-African Americans > 60 (> 60)
[2018-07-30 13:30] LABS: Basophils % 0.1 %; Hematocrit 39.6 % (37.5-50.1); Hemoglobin 12.6 g/dL (12.9-16.9); Immature Granulocytes % 0.4 % (0-4); Lymphocytes # 0.7 K/mcL (0.6-4.6); Lymphocytes % 4.9 %; Mean Corpuscular HGB Conc 31.8 g/dL (31.6-35.5); Mean Corpuscular Hemoglobin 25.4 pg (28.0-33.3); Mean Corpuscular Volume 79.7 fL (83.0-100.0); Mean Platelet Volume 9.4 fL (9.4-12.4); Monocytes # 0.7 K/mcL (0.0-1.3); Monocytes % 5.1 %; Neutrophils # 12.5 K/mcL (1.6-8.9); Platelet Count 315 K/mcL (140-400); Red Blood Count 4.97 M/mcL (4.19-5.50); Red Cell Distribution Width 15.9 % (11.5-14.5); Segmented Neutrophils % 89.5 %
[2018-07-30] MEDS ORDERED: Leptospermum Honey GEL 1 APPL/5 ML MLS TP SCH (16:00)
--- NOTE | 2018-07-30 17:46 | Electrocardiograph Report ---
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
[2018-07-30] MEDS ORDERED: Potassium Chloride 20 MEQ, Lidocaine 1% 2 ML in D5% in Water 250 ML IVPB ONE (18:00)
[2018-07-30] MEDS ORDERED: Insulin DETEMIR 100 UNIT/ML X5UNITS SQ SCH (21:00)
[2018-07-30] MEDS: DESOXIMETASONE 0.25% TP SCH (22:36)
[2018-07-30] MEDS: Leptospermum Honey Gel 44 ML TUBE TP SCH (22:36)
[2018-07-30] MEDS ORDERED: Insulin LISPRO 300 UNITS/3 ML VIAL SQ SCH (23:30)
[2018-07-31] MEDS: Piperacillin/Tazobactam 3.375 GM in 0.9 % Sodium Chloride Mini Bag 100 ML IVPB SCH ×3 (00:19→18:18)
[2018-07-31] MEDS: Melatonin 3 MG TABLET PO PRN ×2 (00:54→21:44)
[2018-07-31] MEDS: Ipratropium/Albuterol Neb 3 ML IH SCH ×6 (04:16→23:04)
[2018-07-31 04:38] LABS: Basophils % 0.2 %; Eosinophils % 0.2 %; Hematocrit 36.9 % (37.5-50.1); Hemoglobin 11.4 g/dL (12.9-16.9); Immature Granulocytes % 0.3 % (0-4); Lymphocytes # 1.6 K/mcL (0.6-4.6); Lymphocytes % 13.7 %; Mean Corpuscular HGB Conc 30.9 g/dL (31.6-35.5); Mean Corpuscular Hemoglobin 25.6 pg (28.0-33.3); Mean Corpuscular Volume 82.7 fL (83.0-100.0); Mean Platelet Volume 9.5 fL (9.4-12.4); Monocytes # 1.3 K/mcL (0.0-1.3); Monocytes % 11.2 %; Neutrophils # 8.4 K/mcL (1.6-8.9); Platelet Count 297 K/mcL (140-400); Red Blood Count 4.46 M/mcL (4.19-5.50); Red Cell Distribution Width 15.9 % (11.5-14.5); Segmented Neutrophils % 74.4 %; White Blood Count 11.3 K/mcL (4.3-11.1)
[2018-07-31 04:57] LABS: BUN/Creatinine Ratio 29 (6-26); Blood Urea Nitrogen 30 mg/dL (8-23); Calcium 8.7 mg/dL (8.6-10.3); Carbon Dioxide 31 mEq/L (23-29); Chloride 98 mEq/L (98-107); Glucose 232 mg/dL (70-105); Osmolality,Calculated 300 (280-300); Sodium 138 mEq/L (136-145); eGFR For African Americans > 60 (> 60); eGFR For Non-African Americans > 60 (> 60)
--- NOTE | 2018-07-31 08:10 | Internal Med Progress Note ---
<Jennifer Bales - Last Filed: 07/31/18 12:47> Hospitalist Progress Note - Encounter Date of Encounter: 07/31/18 - Exam Vitals: Temp Pulse Resp BP Pulse Ox 97.9 F 74 18 128/70 98 07/31/18 07:24 07/31/18 07:24 07/31/18 07:24 07/31/18 07:24 07/31/18 07:24 - Assessment and Plan (1) H/O tracheostomy Current Visit: Yes Status: Chronic (2) Diabetes Current Visit: Yes Status: Chronic (3) History of pulmonary embolus (PE) Current Visit: Yes Status: Acute (4) DVT prophylaxis Current Visit: Yes Status: Acute (5) Dysphagia Current Visit: Yes Status: Acute (6) Acute respiratory failure Current Visit: Yes Status: Acute (7) CHF exacerbation Current Visit: Yes Status: Ruled-out (8) Aspiration pneumonia Current Visit: Yes Status: Acute (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 (10) Morbid obesity Current Visit: Yes Status: Acute (11) Hypokalemia Current Visit: Yes Status: Acute (12) Open wound of heel Current Visit: Yes Status: Acute (13) Hypertension Current Visit: Yes Status: Chronic - Time Spent with Patient Total time spent is greater than 50% in coordination of care (as documented) at patient's floor/unit and/or counseling patient: Internal Medicine: Result - Labs CBC & Chem 7: 07/31/18 03:10 07/31/18 03:10 Labs: Short CBC 07/30/18 07/31/18 Range/Units 12:20 03:10 WBC 14.0 H 11.3 H (4.3-11.1) K/mcL Hgb 12.6 L 11.4 L (12.9-16.9) g/dL Hct 39.6 36.9 L (37.5-50.1) % Plt Count 315 297 (140-400) K/mcL Neutrophils # 12.5 H 8.4 (1.6-8.9) K/mcL BMP 07/30/18 07/31/18 12:20 03:10 Sodium 141 138 Potassium 3.2 L 3.0 L Chloride 97 L 98 Carbon Dioxide 32 H 31 H BUN 30 H 30 H Creatinine 1.08 1.04 Glucose 235 H 232 H Calcium 9.2 8.7 - ABG Interpretation ABG results: PT/INR, D-dimer PT 15.4 Seconds (9.4-12.1) H 07/29/18 16:36 Consult Discharge Plan - Plan Referrals: Richard Ying MD [Primary Care Provider] - - Attending Attestation I examined this patient and my medical decision-making was reviewed with the Resident Physician Dr Blanc. I agree with the documented findings, disposition and treatment plan as described except to the extent set forth below. Mr Bautista was transferred from [place] and is being admitted for respiratory failure and suspected aspiration pna with dysphagia awake, eating breakfast. no sob currently. denies wheezing. no coughing or choking with modified diet. denies fevers or chills gen- alert, awake,appears stated age cv- reg rate and rhythm, normal s1,s2, no pitting le edema lungs- diminished throughout, no wheezing, rhonchi or crackles, normal resp effort on trach collar abd- soft, non tender, non sdistended + bs neuro- AAOx3 Acute hypoxic resp failure as evidenced by O2 requirement (none at home) Suspected Aspiration pna No systolic CHF on echo, edema likely from aspiration -cont zosyn, cont o2 trach collar, diet as per [employer] s/p MBS Aspiration determined not to be related to trach but rather dysphagia STEPHANIE 2/2 Trach- appreciate ENT eval which was unremarkable,received PMV DVT/PE hx on AC- cont xarelto Hadley- Hadley Disease- wound care c/s to cont outpt wound care Morbid Obesity BMI 48.5- lifestyle modifications, pcp follow up, nutrition DM on 70/30 at home- monitoring blood sugar, on Levemir, cont to adjust dosing to goal, team will d/w pharmacy any addl changes to dosing further dx and plan as noted by resident pt eval pending, agreeable to rehab if recommended <Shelli Blanc - Last Filed: 07/31/18 17:14> Hospitalist Progress Note - Encounter Date of Encounter: 07/31/18 Time of Encounter: 08:12 - Subjective Interval History: Seen and examined at bedside, pt's is present. Patient reports he is feeling well today and admits to continued cough with phlegm production. He states that he feels like his cough is primarily coming from the left side. He otherwise denies fevers, chills, chest pain, dyspnea, pleuritic chest pain, abdominal pain, nausea, vomiting. He has no other complaints at this time. - Exam Vitals: Temp Pulse Resp BP Pulse Ox 97.9 F 74 18 128/70 98 07/31/18 07:24 07/31/18 07:24 07/31/18 07:24 07/31/18 07:24 07/31/18 07:24 Exam: General: No acute distress, alert, appears comfortable HEENT: head normocephalic/atraumatic, EOMI, PERRL, sclera anicteric, moist mucus membranes Neck: tracheostomy noted, no active drainage observed; supplemental O2 by trach collar Cardio: RRR, no murmurs, +S1/S2 Pulm: Decreased breath sounds bilaterally, no wheezes, rhonchi, or rales. Normal respiratory effort on trach. Abdomen: soft, nontender, active bowel sounds, no distention Extremities: No LE edema, warm; no calf tenderness, no clubbing Neuro: AAOx3, no focal deficit, CN II-XII grossly intact, moves all extremities spontaneously Skin: BLE venous stasis discoloration Psych: Appropriate mood and affect. Answers questions appropriately. Cooperative with exam - Assessment and Plan (1) Acute respiratory failure Current Visit: Yes Status: Acute Assessment and Plan: Acute respiratory failure most likely d/t aspiration secondary to dysphagia. On admission: afebrile, spO2 95% on 6 L trach collar, hemodynamically stable, WBC 14.3; VBG pH 7.5, CO2 40, O2 137, HCO3 31. CXR shows no acute cardiopulmonary process, low lung volumes. Echo shows LVEF 60-65%, mild LVDD; Doppler suggests moderate LVOT obstruction. Strep and legionella urine antigens negative. Sputum culture collected, preliminary gram stain shows GNR. Received Zosyn at OSH before transfer to [place]. - continue Zosyn 3.375 gm IVPB Q8H, anticipate treating through 08/04/18. - monitor sputum culture for growth, adjust abx accordingly. - continue Solu-Medrol 40 IVP daily day 2, treat through 08/03/18. - duonebs PRN. - supplemental oxygen with tracheostomy. (2) Aspiration pneumonia Current Visit: Yes Status: Acute Assessment and Plan: CXR shows no acute cardiopulmonary process, low lung volumes. Legionella and strep urinary antigens negative. Sputum culture collected, preliminary gram stain shows GNR. Received Zosyn at OSH before transfer to [place]. Speech therapy consulted, recommend use of [place] valve, advanced soft diet, and nectar thick liquids. As above. (3) Dysphagia Current Visit: Yes Status: Acute Assessment and Plan: Pt reports dysphagia since trach changed from size 6 to 8 Shiley by ENT one week prior to admission. Evaluated by speech therapy, [facility] 07/30/18 with recommendation for advanced soft diet and nectar thick liquids recommended. Per ENT consult note, they don't feel it's necessary to downsize trach as pt has previously tolerated trach of this size in past. Passay-[place] valve in place. ADA diet ordered with consistencies per speech therapy recommendations. Speech therapy working with patient. ENT consulted. (4) Diabetes Current Visit: Yes Status: Chronic Assessment and Plan: Glucoses in high 200's to 370's. Levemir 35 units BID with low dose sliding scale. Diabetic diet. Glucose check AC HS. (5) CHF exacerbation Current Visit: Yes Status: Ruled-out Assessment and Plan: Ruled out, was suspected on admission. Not fluid overloaded on exam today. Echo shows LVEF 60-65%, mild LVDD; Doppler suggests moderate LVOT obstruction. Lasix discontinued. (6) Hypokalemia Current Visit: Yes Status: Acute Assessment and Plan: Continue to monitor with morning BMP. Continue potassium supplementation PRN. Recheck magnesium in morning, replace PRN. 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 Will continue home dose Xarelto. 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 Follows with dermatology outpatient. Routine monitoring and care for areas of skin breakdown. (10) Open wound of heel Current Visit: Yes Status: Acute Assessment and Plan: Right heel wound present on admission, has been treating at home. Wound care consulted to evaluate and manage, recommendations appreciated. (11) Hypertension Current Visit: Yes Status: Chronic Assessment and Plan: Controlled. Continue home dose losartan 50 mg PO daily. Lopressor 5 mg IVP PRN. (12) H/O tracheostomy Current Visit: Yes Status: Chronic DVT Prophylaxis: xarelto - Time Spent with Patient Total time spent is greater than 50% in coordination of care (as documented) at patient's floor/unit and/or counseling patient: Plan of Care Discussed with: patient Internal Medicine: Result - Labs CBC & Chem 7: 07/31/18 03:10 07/31/18 03:10 Labs: Short CBC 07/30/18 07/31/18 Range/Units 12:20 03:10 WBC 14.0 H 11.3 H (4.3-11.1) K/mcL Hgb 12.6 L 11.4 L (12.9-16.9) g/dL Hct 39.6 36.9 L (37.5-50.1) % Plt Count 315 297 (140-400) K/mcL Neutrophils # 12.5 H 8.4 (1.6-8.9) K/mcL BMP 07/30/18 07/31/18 12:20 03:10 Sodium 141 138 Potassium 3.2 L 3.0 L Chloride 97 L 98 Carbon Dioxide 32 H 31 H BUN 30 H 30 H Creatinine 1.08 1.04 Glucose 235 H 232 H Calcium 9.2 8.7 - ABG Interpretation ABG results: PT/INR, D-dimer PT 15.4 Seconds (9.4-12.1) H 07/29/18 16:36 - Impressions Impressions Videofluoroscopic Swallow 07/30/18 10:08 IMPRESSION: Penetration and possible aspiration of thin barium without and with chin tuck. Penetration of nectar consistency without chin tuck. No penetration or aspiration of nectar, applesauce, or cracker with chin tuck. Please see separate speech pathology report for full discussion of findings and recommendations. D/ / Marti Lugo MD / Marti Lugo MD Interpreting Provider: Marti Lugo MD Echocardiogram 07/30/18 17:40 Impressions: LVEF 60-65%. Normal LV chamber size and function. Wall thickness not well evaluated. Mild left ventricular diastolic dysfunction. Aortic valve not well visualized. Moderate LVOT obstruction suggested by Doppler. Mean gradient 23 mmHg. Unable to estimate RVSP due to lack of TR jet. Left Ventricular Wall Motion: Rest Echo Findings All wall segments showed normal motion. Findings: Study Quality * Technically sub-optimal due to body habitus. Many cardiac structures were not well evaluated. ECG Findings * Normal sinus rhythm. Left Ventricle * LVEF 60-65%. * Normal LV chamber size and function. * Mild left ventricular diastolic dysfunction. * Wall thickness not well evaluated. * Moderate LVOT obstruction suggested by Doppler. Mean gradient 23 mmHg. Right Ventricle * Right ventricle was not well visualized. Left Atrium * Not well visualized, grossly appears dilated Right Atrium * Not well visualized, grossly appears dilated. Interatrial Septum * Interatrial septum not well evaluated. Aortic Valve * Aortic valve not well visualized. * No aortic regurgitation. * Doppler suggests subvalvular aortic stenosis, although not well visualized. Mitral Valve * Grossly, mild mitral annular calcification. * No mitral regurgitation. * No mitral stenosis. Tricuspid Valve * Tricuspid valve not well visualized. * No tricuspid regurgitation. * Unable to estimate RVSP due to lack of TR jet. Pulmonic Valve * Pulmonic valve not well visualized. Aorta * Not well visualized. Pericardium * The pericardium appears normal. IVC * The IVC is not well evaluated. Pulmonary Artery * Pulmonary artery not well visualized. 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 use: with jail use (5) Dysphagia Qualifiers: Dysphagia type: pharyngeal phase Qualified Code(s): R13.13 - Dysphagia, pharyngeal phase (6) Acute respiratory failure Qualifiers: Respiratory failure complication: hypoxia Qualified Code(s): J96.01 - Acute respiratory failure with hypoxia (7) CHF exacerbation Qualifiers: Heart failure type: unspecified Qualified Code(s): I50.9 - Heart failure, unspecified (8) Aspiration pneumonia Qualifiers: Aspiration pneumonia type: due to regurgitated food (12) Open wound of heel Qualifiers: Encounter type: initial encounter Laterality: right Qualified Code(s): S91.301A - Unspecified open wound, right foot, initial encounter (13) Hypertension Qualifiers: Hypertension type: essential hypertension Qualified Code(s): I10 - Essential (primary) hypertension <Shelli Blanc - Last Filed: 07/31/18 17:14> (1) Acute respiratory failure Qualifiers: Respiratory failure complication: hypoxia Qualified Code(s): J96.01 - Acute respiratory failure with hypoxia (2) Aspiration pneumonia Qualifiers: Aspiration pneumonia type: due to regurgitated food (3) Dysphagia Qualifiers: Dysphagia type: pharyngeal phase Qualified Code(s): R13.13 - Dysphagia, pharyngeal phase (4) Diabetes Qualifiers: Diabetes mellitus type: type 2 Diabetes mellitus jail insulin use: with superintendent [employer] use (5) CHF exacerbation Qualifiers: Heart failure type: unspecified Qualified Code(s): I50.9 - Heart failure, unspecified (10) Open wound of heel Qualifiers: Encounter type: initial encounter Laterality: right Qualified Code(s): S91.301A - Unspecified open wound, right foot, initial encounter (11) Hypertension Qualifiers: Hypertension type: essential hypertension Qualified Code(s): I10 - Essential (primary) hypertension
[2018-07-31] MEDS: *HR* Rivaroxaban 10 MG TABLET PO SCH (08:44)
[2018-07-31] MEDS: Aspirin Enteric Coated 81 MG Tablet PO SCH (08:44)
[2018-07-31] MEDS: MethylPREDNISolone 40 MG/ML VIAL IVP SCH (08:45)
[2018-07-31] MEDS: Insulin LISPRO 300 UNITS/3 ML VIAL SQ SCH ×3 (08:46→21:44)
[2018-07-31] MEDS: DESOXIMETASONE 0.25% TP SCH ×2 (10:26→21:45)
[2018-07-31] MEDS ORDERED: Insulin DETEMIR 100 UNIT/ML X5UNITS SQ ONE (10:59)
[2018-07-31] MEDS ORDERED: 0.9 % Sodium Chloride 1,000 ML ONE (12:08)
[2018-07-31] MEDS ORDERED: Potassium Chloride Elixir 20 MEQ/15 ML UDC PO ONE (13:00)
[2018-07-31] MEDS ORDERED: Insulin LISPRO 300 UNITS/3 ML VIAL SQ SCH ×2 (14:01)
[2018-07-31] MEDS: Insulin DETEMIR 100 UNIT/ML X5UNITS SQ SCH (21:45)
[2018-07-31] MEDS: Leptospermum Honey Gel 44 ML TUBE TP SCH (21:45)
[2018-08-01] MEDS: Piperacillin/Tazobactam 3.375 GM in 0.9 % Sodium Chloride Mini Bag 100 ML IVPB SCH ×3 (01:20→17:05)
[2018-08-01] MEDS: Ipratropium/Albuterol Neb 3 ML IH SCH ×6 (03:42→23:03)
[2018-08-01 07:45] LABS: Basophils % 0.1 %; Eosinophils # 0.1 K/mcL (0.0-0.6); Eosinophils % 0.8 %; Hemoglobin 11.3 g/dL (12.9-16.9); Immature Granulocytes % 0.5 % (0-4); Lymphocytes # 1.4 K/mcL (0.6-4.6); Lymphocytes % 14.6 %; Mean Corpuscular HGB Conc 31.4 g/dL (31.6-35.5); Mean Corpuscular Hemoglobin 25.9 pg (28.0-33.3); Mean Corpuscular Volume 82.4 fL (83.0-100.0); Mean Platelet Volume 9.5 fL (9.4-12.4); Monocytes # 0.8 K/mcL (0.0-1.3); Monocytes % 8.4 %; Neutrophils # 7.4 K/mcL (1.6-8.9); Platelet Count 274 K/mcL (140-400); Red Blood Count 4.37 M/mcL (4.19-5.50); Red Cell Distribution Width 15.8 % (11.5-14.5); Segmented Neutrophils % 75.6 %; White Blood Count 9.8 K/mcL (4.3-11.1)
[2018-08-01 07:57] LABS: BUN/Creatinine Ratio 26 (6-26); Blood Urea Nitrogen 23 mg/dL (8-23); Calcium 8.6 mg/dL (8.6-10.3); Carbon Dioxide 31 mEq/L (23-29); Chloride 100 mEq/L (98-107); Glucose 241 mg/dL (70-105); Magnesium 1.9 mg/dL (1.6-2.6); Osmolality,Calculated 296 (280-300); Potassium 3.7 mEq/L (3.5-5.1); Sodium 137 mEq/L (136-145); eGFR For African Americans > 60 (> 60); eGFR For Non-African Americans > 60 (> 60)
[2018-08-01 08:13] LABS: Thyroid Stimulating Hormone 1.468 mcIU/mL (0.340-5.600)
[2018-08-01] MEDS: Aspirin Enteric Coated 81 MG Tablet PO SCH (08:36)
[2018-08-01] MEDS: *HR* Rivaroxaban 10 MG TABLET PO SCH (08:36)
[2018-08-01] MEDS: Insulin DETEMIR 100 UNIT/ML X5UNITS SQ SCH ×2 (08:37→22:50)
[2018-08-01] MEDS: MethylPREDNISolone 40 MG/ML VIAL IVP SCH (08:37)
[2018-08-01] MEDS: DESOXIMETASONE 0.25% TP SCH ×2 (08:39→22:51)
--- NOTE | 2018-08-01 08:47 | Internal Med Progress Note ---
<Dale Bautista - Last Filed: 08/01/18 18:16> Hospitalist Progress Note - Encounter Date of Encounter: 08/01/18 - Exam Vitals: Temp Pulse Resp BP Pulse Ox 98.5 F 87 19 131/88 98 08/01/18 04:31 08/01/18 17:02 08/01/18 17:02 08/01/18 17:02 08/01/18 17:02 - Assessment and Plan (1) H/O tracheostomy Current Visit: Yes Status: Chronic (2) Diabetes Current Visit: Yes Status: Chronic (3) History of pulmonary embolus (PE) Current Visit: Yes Status: Acute (4) DVT prophylaxis Current Visit: Yes Status: Acute (5) Dysphagia Current Visit: Yes Status: Acute (6) Acute respiratory failure Current Visit: Yes Status: Acute (7) CHF exacerbation Current Visit: Yes Status: Ruled-out (8) Aspiration pneumonia Current Visit: Yes Status: Acute (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 (10) Morbid obesity Current Visit: Yes Status: Chronic (11) Hypokalemia Current Visit: Yes Status: Acute (12) Open wound of heel Current Visit: Yes Status: Acute (13) Hypertension Current Visit: Yes Status: Chronic (14) Tracheostomy dependence Current Visit: Yes Status: Chronic - Time Spent with Patient Total time spent is greater than 50% in coordination of care (as documented) at patient's floor/unit and/or counseling patient: Internal Medicine: Result - Labs CBC & Chem 7: 08/01/18 06:39 08/01/18 06:39 Labs: Short CBC 08/01/18 Range/Units 06:39 WBC 9.8 (4.3-11.1) K/mcL Hgb 11.3 L (12.9-16.9) g/dL Hct 36.0 L (37.5-50.1) % Plt Count 274 (140-400) K/mcL Neutrophils # 7.4 (1.6-8.9) K/mcL BMP 08/01/18 06:39 Sodium 137 Potassium 3.7 Chloride 100 Carbon Dioxide 31 H BUN 23 Creatinine 0.88 Glucose 241 H Calcium 8.6 - ABG Interpretation ABG results: PT/INR, D-dimer PT 15.4 Seconds (9.4-12.1) H 07/29/18 16:36 Consult Discharge Plan - Plan Referrals: Richard Ying MD [Primary Care Provider] - - Attending Attestation I examined this patient and my medical decision-making was reviewed with the Resident Physician on 08/01/18. I agree with the documented findings, dis position and treatment plan as described except to the extent set forth below. Mr Bautista is currently admitted for acute respiratory failure due to aspiration pneumonia. He remains moderate to high risk due to potential for worsening respiratory status. Mr Bautista is feeling OK. He is up in chair. No fever or chills. Tolerating speaking valve. Exam as below. Working on discharge planning to SNF at this time. <Shelli Blanc - Last Filed: 08/01/18 19:05> Hospitalist Progress Note - Encounter Date of Encounter: 08/01/18 Time of Encounter: 08:44 - Subjective Interval History: Feels ready to be discharged to rehab/snf soon. Wants to know if he can keep the urena cath, states he is often incontinent. Reports feeling constipated, not been able to have bowel movement over last few days. Denies NV,fever/chills, chest pain, abdominal pain, wheezing, purulent d/c from trach. Feels his breathing is much better than when he came in. - Exam Vitals: Temp Pulse Resp BP Pulse Ox 98.5 F 64 18 143/84 98 08/01/18 04:31 08/01/18 07:16 08/01/18 07:39 08/01/18 07:16 08/01/18 07:39 Exam: General: No acute distress, alert, appears comfortable HEENT: head normocephalic/atraumatic, EOMI, PERRL, sclera anicteric, moist mucus membranes Neck: tracheostomy noted, no active drainage observed; supplemental O2 by trach collar Cardio: RRR, no murmurs, +S1/S2 Pulm: CTAB, no wheezes, rhonchi, or rales. Normal respiratory effort on trach. Abdomen: soft, nontender, active bowel sounds Extremities: No LE edema, warm; no calf tenderness, no clubbing Neuro: AAOx3, no focal deficit, CN II-XII grossly intact, moves all extremities spontaneously Skin: BLE venous stasis discoloration Psych: Appropriate mood and affect. Answers questions appropriately. Cooperative with exam - Assessment and Plan (1) Acute respiratory failure Current Visit: Yes Status: Acute Assessment and Plan: Improved. Acute respiratory failure most likely d/t aspiration secondary to dysphagia. On admission: afebrile, spO2 95% on 6 L trach collar, hemodynamically stable, WBC 14.3; VBG pH 7.5, CO2 40, O2 137, HCO3 31. CXR shows no acute cardiopulmonary process, low lung volumes. Echo shows LVEF 60-65%, mild LVDD; Doppler suggests moderate LVOT obstruction. Strep and legionella urine antigens negative. Sputum culture collected, preliminary gram stain shows GNR. Received Zosyn at OSH before transfer to [place]. - discontinue Zosyn 3.375 gm IV - start Augmentin 875 mg BIDWM PO with breakfast tomorrow, anticipate treating through 08/05/18. - discontinue Solu-Medrol 40 IV - start prednisone 40 mg PO daily, treat through 08/03/18. - duonebs PRN. - supplemental oxygen with tracheostomy. (2) Aspiration pneumonia Current Visit: Yes Status: Acute Assessment and Plan: CXR shows no acute cardiopulmonary process, low lung volumes. Legionella and strep urinary antigens negative. Sputum culture collected, preliminary gram stain shows GNR. Received Zosyn at OSH before transfer to [place]. Speech therapy consulted, recommend use of Pass[place] valve, advanced soft diet, and nectar thick liquids. As above. (3) Dysphagia Current Visit: Yes Status: Acute Assessment and Plan: Pt reports dysphagia since trach changed from size 6 to 8 Shiley by ENT one week prior to admission. Seen and evaluated by ENT. Evaluated by speech therapy, [facility] [place] 07/30/18 with recommendation for advanced soft diet and nectar thick liquids recommended. Per ENT consult note, they don't feel it's necessary to downsize trach as pt has previously tolerated trach of this size in past. Passay-[place] valve in place. ADA diet ordered with consistencies per speech therapy recommendations. Speech therapy working with patient. (4) Diabetes Current Visit: Yes Status: Chronic Assessment and Plan: Levemir 35 units BID with low dose sliding scale. Diabetic diet. Glucose check AC HS. - will likely require scheduled meal time insulin tomorrow if POC glucoses remain > 250, reevaluate in AM (5) CHF exacerbation Current Visit: Yes Status: Ruled-out Assessment and Plan: Ruled out, was suspected on admission. Not fluid overloaded on exam today. Echo shows LVEF 60-65%, mild LVDD; Doppler suggests moderate LVOT obstruction. Lasix discontinued. (6) History of pulmonary embolus (PE) Current Visit: Yes Status: Acute Assessment and Plan: History of DVT and PE, continue home dose Xarelto. 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 Follows with dermatology outpatient. Routine monitoring and care for areas of skin breakdown. (9) Open wound of heel Current Visit: Yes Status: Acute Assessment and Plan: Right heel wound present on admission, has been treating at home. Wound care consulted to evaluate and manage. (10) Hypertension Current Visit: Yes Status: Chronic Assessment and Plan: Controlled. Continue home dose losartan 50 mg PO daily. Lopressor 5 mg IVP PRN. (11) H/O tracheostomy Current Visit: Yes Status: Chronic (12) Hypokalemia Current Visit: Yes Status: Resolved Assessment and Plan: Within normal limits today - Time Spent with Patient Total time spent is greater than 50% in coordination of care (as documented) at patient's floor/unit and/or counseling patient: Internal Medicine: Result - Labs CBC & Chem 7: 08/01/18 06:39 08/01/18 06:39 Labs: Short CBC 08/01/18 Range/Units 06:39 WBC 9.8 (4.3-11.1) K/mcL Hgb 11.3 L (12.9-16.9) g/dL Hct 36.0 L (37.5-50.1) % Plt Count 274 (140-400) K/mcL Neutrophils # 7.4 (1.6-8.9) K/mcL BMP 08/01/18 06:39 Sodium 137 Potassium 3.7 Chloride 100 Carbon Dioxide 31 H BUN 23 Creatinine 0.88 Glucose 241 H Calcium 8.6 - ABG Interpretation ABG results: PT/INR, D-dimer PT 15.4 Seconds (9.4-12.1) H 07/29/18 16:36 <Dale Bautista - Last Filed: 08/01/18 18:16> (2) Diabetes Qualifiers: Diabetes mellitus type: type 2 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 insulin use: with senior living use Diabetes mellitus complication status: with hyperglycemia Qualified Code(s): E11.65 - Type 2 diabetes mellitus with hyperglycemia; Z79.4 - USP (current) use of insulin (5) Dysphagia Qualifiers: Dysphagia type: pharyngeal phase Qualified Code(s): R13.13 - Dysphagia, pharyngeal phase (6) Acute respiratory failure Qualifiers: Respiratory failure complication: hypoxia Qualified Code(s): J96.01 - Acute respiratory failure with hypoxia (7) CHF exacerbation Qualifiers: Heart failure type: diastolic Qualified Code(s): I50.33 - Acute on chronic diastolic (congestive) heart failure (8) Aspiration pneumonia Qualifiers: Aspiration pneumonia type: due to regurgitated food Qualified Code(s): J69.0 - Pneumonitis due to inhalation of food and vomit (12) Open wound of heel Qualifiers: Encounter type: subsequent encounter Laterality: right Qualified Code(s): S91.301D - Unspecified open wound, right foot, subsequent encounter (13) Hypertension Qualifiers: Hypertension type: essential hypertension Qualified Code(s): I10 - Essential (primary) hypertension <Shelli Blanc - Last Filed: 08/01/18 19:05> (1) Acute respiratory failure Qualifiers: Respiratory failure complication: hypoxia Qualified Code(s): J96.01 - Acute respiratory failure with hypoxia (2) Aspiration pneumonia Qualifiers: Aspiration pneumonia type: due to regurgitated food Qualified Code(s): J69.0 - Pneumonitis due to inhalation of food and vomit (3) Dysphagia Qualifiers: Dysphagia type: pharyngeal phase Qualified Code(s): R13.13 - Dysphagia, pharyngeal phase (4) Diabetes Qualifiers: Diabetes mellitus type: type 2 Diabetes mellitus senior living insulin use: with senior living use Diabetes mellitus complication status: with hyperglycemia Qualified Code(s): E11.65 - Type 2 diabetes mellitus with hyperglycemia; Z79.4 - USP (current) use of insulin (5) CHF exacerbation Qualifiers: Heart failure type: diastolic Qualified Code(s): I50.33 - Acute on chronic diastolic (congestive) heart failure (9) Open wound of heel Qualifiers: Encounter type: subsequent encounter Laterality: right Qualified Code(s): S91.301D - Unspecified open wound, right foot, subsequent encounter (10) Hypertension Qualifiers: Hypertension type: essential hypertension Qualified Code(s): I10 - Essential (primary) hypertension
[2018-08-01] MEDS ORDERED: Acetaminophen 325 MG TABLET PO PRN (16:34)
[2018-08-01] MEDS ORDERED: Piperacillin/Tazobactam 3.375 GM in 0.9 % Sodium Chloride Mini Bag 100 ML IVPB SCH (18:47)
[2018-08-01] MEDS: Insulin LISPRO 300 UNITS/3 ML VIAL SQ SCH (22:50)
[2018-08-01] MEDS: Leptospermum Honey Gel 44 ML TUBE TP SCH (22:50)
[2018-08-02] MEDS: Ipratropium/Albuterol Neb 3 ML IH SCH ×6 (03:35→23:21)
[2018-08-02 06:03] LABS: Basophils % 0.2 %; Eosinophils # 0.1 K/mcL (0.0-0.6); Eosinophils % 1.1 %; Hematocrit 34.5 % (37.5-50.1); Immature Granulocytes % 0.4 % (0-4); Lymphocytes # 1.7 K/mcL (0.6-4.6); Lymphocytes % 15.2 %; Mean Corpuscular HGB Conc 31.9 g/dL (31.6-35.5); Mean Corpuscular Hemoglobin 25.9 pg (28.0-33.3); Mean Corpuscular Volume 81.4 fL (83.0-100.0); Mean Platelet Volume 9.4 fL (9.4-12.4); Monocytes # 0.8 K/mcL (0.0-1.3); Monocytes % 7.7 %; Neutrophils # 8.2 K/mcL (1.6-8.9); Platelet Count 244 K/mcL (140-400); Red Blood Count 4.24 M/mcL (4.19-5.50); Red Cell Distribution Width 15.6 % (11.5-14.5); Segmented Neutrophils % 75.4 %; White Blood Count 10.8 K/mcL (4.3-11.1)
[2018-08-02 06:32] LABS: BUN/Creatinine Ratio 23 (6-26); Blood Urea Nitrogen 19 mg/dL (8-23); Calcium 8.7 mg/dL (8.6-10.3); Carbon Dioxide 30 mEq/L (23-29); Chloride 97 mEq/L (98-107); Glucose 216 mg/dL (70-105); Osmolality,Calculated 293 (280-300); Potassium 3.8 mEq/L (3.5-5.1); Sodium 137 mEq/L (136-145); eGFR For African Americans > 60 (> 60); eGFR For Non-African Americans > 60 (> 60)
[2018-08-02] MEDS: *HR* Rivaroxaban 10 MG TABLET PO SCH (09:52)
[2018-08-02] MEDS: predniSONE 20 MG TABLET PO SCH (09:52)
[2018-08-02] MEDS: Aspirin Enteric Coated 81 MG Tablet PO SCH (09:52)
[2018-08-02] MEDS: Insulin DETEMIR 100 UNIT/ML X5UNITS SQ SCH ×2 (09:55→20:44)
[2018-08-02] MEDS: Insulin LISPRO 300 UNITS/3 ML VIAL SQ SCH ×2 (12:29→17:05)
--- NOTE | 2018-08-02 14:45 | Discharge Summary ---
<Elo Tobias - Last Filed: 08/02/18 18:31> - NOTES TO OUTPATIENT PROVIDER Notes to Outpatient Provider: - Continue with Augmentin until 08/05/18 for treatment of suspected aspiration pneumonia. - Continue with prednisone until 08/03/18. - Please continue with 40 units twice a day of Levemir. Additionally continue with medium dose insulin sliding scale. Please monitor blood sugars carefully. Please check before meals and before bedtime. - Recommend recheck of potassium or BMP within 1 week of discharge. Patient presented with hypokalemia. Since resolved. Please monitor closely. Orders not resulted at time of discharge: Pending orders 07/29/18 17:40 Culture,Sputum with Gram Stain [RM] Stat 08/03/18 04:00 BMP [Basic Metabolic Panel] AM 0400 Complete Blood Count [HEME] AM 0400 Date of Encounter: 08/02/18 Time of Encounter: 14:43 - Discharge Diagnosis (1) Acute respiratory failure Priority: Primary Status: Acute Qualifiers: Respiratory failure complication: hypoxia Qualified Code(s): J96.01 - Acute respiratory failure with hypoxia (2) Aspiration pneumonia Priority: Secondary Status: Acute Qualifiers: Qualified Code(s): J69.0 - Pneumonitis due to inhalation of food and vomit (3) CHF exacerbation Priority: Secondary Status: Ruled-out Qualifiers: Heart failure type: diastolic Qualified Code(s): I50.33 - Acute on chronic diastolic (congestive) heart failure (4) Diabetes Priority: Secondary Status: Chronic Qualifiers: Diabetes mellitus type: type 2 Diabetes mellitus [facility]: with [facility] Diabetes mellitus complication status: with hyperglycemia Qualified Code(s): E11.65 - Type 2 diabetes mellitus with hyperglycemia; 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 (5) Dysphagia Priority: Secondary Status: Acute Qualifiers: Dysphagia type: pharyngeal phase Qualified Code(s): R13.13 - Dysphagia, pharyngeal phase (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 (7) History of pulmonary embolus (PE) Priority: Secondary Status: Resolved (8) Hypertension Priority: Secondary Status: Chronic Qualifiers: Hypertension type: essential hypertension Qualified Code(s): I10 - Essential (primary) hypertension (9) Hypokalemia Priority: Secondary Status: Resolved (10) Open wound of heel Priority: Secondary Status: Acute Qualifiers: Encounter type: subsequent encounter Laterality: right Qualified Code(s): S91.301D - Unspecified open wound, right foot, subsequent encounter (11) STEPHANIE (obstructive sleep apnea) Priority: Secondary Status: Chronic Hospital course: Mr. Bautista is a 68 year old male with past medical history significant for tracheostomy, diabetes, Hadley Hadley disease, hypertension, hypothyroid, STEPHANIE, history of DVT/PE on his or else a who initially presented to [place] the transfer from [facility] noted to be evaluated by ENT due to aspirating food with speech therapy after multiple attempts to feed him. This triggered coughing episodes. This is apparently secondary to change in trach size last week. In the ED, patient was complaining of shortness of breath, congestion, cough for 3 days prior to presentation. Oxygen saturation was appropriate on room air. Labs showed the patient was afebrile with leukocytosis = 15. Admitted due to acute diastolic CHF exacerbation and acute bronchitis. Additionally was treated for aspiration pneumonia after aspirating food multiple times in the hospital. Patient was initially treated with Solu-Medrol 40 mg every 8 hours, Zosyn, Lasix 60 mg twice a day. Leukocytosis improved over the course of inpatient stay. Patient was noted to be hypokalemic and potassium was replaced. ENT was consulted. Tracheal bronchoscopy was performed at bedside. No acute findings with tracheal bronchoscopy. Patient's tracheostomy tube was replaced. They did recommend keeping patient's tracheostomy tube size consistent with what he has been using for many years. Also recommended that speech therapy evaluate patient for placement of passay-giancarlo valve. Finally, recommended routine trach care with frequent suctioning. Echocardiography was done and did show no systolic CHF. Antibiotic Zosyn was continued for treatment of suspected aspiration pneumonia. Steroids were slowly weaned. Soft amoxicillin as needed. Speech therapy recommended soft diet with nectar thick liquids. Additionally, patient's diabetes was managed and he was changed to Levemir 35 units twice a day with low to medium dose sliding scale. Currently, patient is resting comfortably at bedside. He is in no acute distress. Vital signs are stable, and as he is breathing comfortably on room air. Lab work was essentially benign today. He has been started on Augmentin 875 mg twice a day for treatment of presumed aspiration pneumonia. We will treat until 08/05/18. Additionally will discontinue Solu-Medrol and started on daily prednisone to be treated until 08/03/18. Per speech therapy, patient will be discharged with recommendation for advance of diet and nectar thick liquids. ENT evaluated patient and recommend previous trach size and no need to down size. Passay-Diagonal valve in place. Patient does have long-standing diabetes. Currently on Levemir 40 units twice a day and medium dose sliding scale insulin. Will require close follow-up regarding diabetes management. Otherwise, continue Xarelto given history of DVT and PE. Follow-up with dermatology given history of Hadley-Hadley disease. Follow-up wound care given open wound on the heel. Patient will benefit from close follow-up with PCP. Recommended follow-up with in 1 week of discharge. We will order BMP to check for hypokalemia at time of discharge. Medium dose sliding scale: [id number] => 4 units 181-220 => 6 units 221-260 => 8 units 261-300 => 10 units 301-350 => 12 units 351-400 => 14 units Greater than 400 => 16 units Levemir Long Acting basal insulin 40 units BID Discharge discussed with: patient - Time Spent with Patient Total time spent providing and/or coordinating discharge services: Time spent: Less than 30 minutes - Discharge Medications Prescriptions: New Amoxicillin/Clavulanate [Augmentin] 875 mg PO BIDWM tablet Insulin LISPRO [HumaLOG] 0 units SQ TIDAC vial Insulin DETEMIR [Levemir] 40 unit SQ BID [id number] predniSONE [PredniSONE] 40 mg PO DAILY tablet Leptospermum Honey [Medihoney] 1 appl TP 2100 tube Acetaminophen [Tylenol] 650 mg PO Q6HR PRN tablet PRN Reason: Pain Losartan [Cozaar] 50 mg PO DAILY tablet Continued Furosemide [Lasix] 40 mg PO DAILY Clobetasol Propionate [Temovate] 1 appl TP DAILY PRN PRN Reason: Skin Irritation Rivaroxaban [Xarelto] 20 mg PO QPM Citalopram Hydrobromide [Celexa] 20 mg PO BID Atorvastatin [Lipitor] 40 mg PO DAILY hydroCHLOROthiazide [Hydrochlorothiazide] 25 mg PO DAILY Aspirin 81 mg PO DAILY Cholecalciferol (Vitamin D3) [Vitamin D3] 1,000 unit PO DAILY Desoximetasone 1 appl TP DAILY Melatonin [Melatin] 3 mg PO HS Multivit-Min/FA/Lycopen/Lutein [Centrum Silver Men Tablet] 1 tab PO DAILY Sennosides [Senokot] 8.6 mg PO DAILY PRN PRN Reason: Constipation Vitamin A 10,000 unit PO DAILY Vitamin B Complex [B Complex] 1 tab PO DAILY Tramadol HCl [Ultram] 50 mg PO BID PRN PRN Reason: Pain Levothyroxine [Synthroid] 50 mcg PO QAM Discontinued Insulin NPH Hum/Reg Insulin Hm [Humulin 70-30 Vial] 60 unit SQ QPM Insulin NPH Hum/Reg Insulin Hm [Humulin 70-30 Vial] 80 unit SQ QAM Home Medications: Levothyroxine [Synthroid] 50 mcg PO QAM 08/23/16 [History] Tramadol HCl [Ultram] 50 mg PO BID PRN 08/23/16 [History] Clobetasol Propionate [Temovate] 1 appl TP DAILY PRN 07/29/18 [History] Furosemide [Lasix] 40 mg PO DAILY 07/29/18 [History] Rivaroxaban [Xarelto] 20 mg PO QPM 07/29/18 [History] Aspirin 81 mg PO DAILY 07/30/18 [History] Atorvastatin [Lipitor] 40 mg PO DAILY 07/30/18 [History] Cholecalciferol (Vitamin D3) [Vitamin D3] 1,000 unit PO DAILY 07/30/18 [History] Citalopram Hydrobromide [Celexa] 20 mg PO BID 07/30/18 [History] Desoximetasone 1 appl TP DAILY 07/30/18 [History] Melatonin [Melatin] 3 mg PO HS 07/30/18 [History] Multivit-Min/FA/Lycopen/Lutein [Centrum Silver Men Tablet] 1 tab PO DAILY 07/30/18 [History] Sennosides [Senokot] 8.6 mg PO DAILY PRN 07/30/18 [History] Vitamin A 10,000 unit PO DAILY 07/30/18 [History] Vitamin B Complex [B Complex] 1 tab PO DAILY 07/30/18 [History] hydroCHLOROthiazide [Hydrochlorothiazide] 25 mg PO DAILY 07/30/18 [History] Acetaminophen [Tylenol] 650 mg PO Q6HR PRN tablet 08/02/18 [Rx] Amoxicillin/Clavulanate [Augmentin] 875 mg PO BIDWM tablet 08/02/18 [Rx] Insulin DETEMIR [Levemir] 40 unit SQ BID [id number] 08/02/18 [Rx] Insulin LISPRO [HumaLOG] 0 units SQ TIDAC vial 08/02/18 [Rx] Leptospermum Honey [Medihoney] 1 appl TP 2100 tube 08/02/18 [Rx] Losartan [Cozaar] 50 mg PO DAILY tablet 08/02/18 [Rx] predniSONE [PredniSONE] 40 mg PO DAILY tablet 08/02/18 [Rx] Allergies/Adverse Reactions: Allergy/AdvReac Type Severity Reaction Status Date / Time No Known Allergies Allergy Verified 07/30/18 16:48 Date of admission: 07/29/18 16:26 Primary care physician: Richard Ying MD Consults: 07/29/18 16:17 Consult to Nutrition [CONS] Routine Comment: Consulting Provider: NUTRITION Reason for Dietary Consult: MST Score 07/29/18 16:24 Consult to ENT [CONS] Routine Consulting Provider: [facility] [place] Reason for Consult: SOB. transfer from [place] whom spoke with Dr. Justin Ramirez. recent trach change from 6 to 8 Call Completed: Yes 07/29/18 17:40 Consult to Speech Therapy [CONS] Routine Comment: Evaluate, develop and implement POC Reason for Consult: dysphagia. Please insert passaynuir. Hx trach Call Completed: No Consult to Wound Care [CONS] Routine Reason for Consult: wounds on heel Call Completed: No 07/29/18 17:45 Consult to Occupational Therapy [CONS] Routine Comment: Evaluate, develop and implement POC Reason for Consult: weakness Does patient have active BEDREST order?: No Is patient medically & hemodynamically stable?: Yes Consult to Physical Therapy [CONS] Routine Comment: Evaluate, develop and implement POC Reason for Consult: weakness Does patient have active BEDREST order?: No Is patient medically & hemodynamically stable?: Yes Discharging clinician: Elo Tobias Anticipated date of discharge: 08/02/18 - Constitutional Vitals: Temp Pulse Resp BP Pulse Ox 97.8 F 70 16 144/69 96 08/02/18 07:29 08/02/18 07:29 08/02/18 11:27 08/02/18 07:29 08/02/18 11:27 General appearance: Present: cooperative, A&O X 3, pleasant, no acute distress, obese, answers questions appropriately Exam: Pleasant 68-year-old male who is resting comfortably at bedside in no acute distress. Vitals hemodynamically stable. Oxygen saturation appropriate on room air. - Head Head exam: Present: atraumatic, normal inspection, normocephalic - Eye Eye exam: Present: EOMI - ENT ENT exam: Present: mucous membranes moist Additional comments: Tracheostomy in place. No signs of infection. - Neck Neck exam general surgery: Present: full ROM, supple - Respiratory Respiratory exam: Present: CTAB. Absent: respiratory distress, wheezes - Cardiovascular Cardiovascular exam: Present: RRR, +S1, +S2 - GI/Abdominal GI/Abdominal exam: Present: normal bowel sounds, soft, no peritoneal signs - Neurological Exam Neurological exam: Present: alert, CN II-XII intact, oriented X3, no focal deficits - Psychiatric Psychiatric exam: Present: normal affect, normal mood - Skin Additional comments: Bruising of bilateral lower extremities around the bilateral calves. Nontender. No pedal edema. - Patient Status Disposition: Transfer SNF Condition: Fair Overall status at discharge: patient is progressing back to baseline - Ambulatory Orders Ambulatory Orders: Basic Metabolic Panel [CHEM] Time Frame: 1 Week, Facility: [facility], Location: Lab - Discharge Instructions Instructions: Acute Respiratory Distress Syndrome (DC), Aspiration Pneumonia (DC) Follow Up With: Richard Ying MD [Primary Care Provider] - - Diet and Activity Activity: as per physical therapy, increase activity as tolerated, wear oxygen at night Diet: diabetic diet, low fat, low cholesterol, low salt diet <Dale Bautista - Last Filed: 08/03/18 17:29> Orders not resulted at time of discharge: Pending orders 07/29/18 17:40 Culture,Sputum with Gram Stain [RM] Stat 08/03/18 04:00 BMP [Basic Metabolic Panel] AM 0400 Complete Blood Count [HEME] AM 0400 Date of Encounter: 08/03/18 - Discharge Diagnosis (1) H/O tracheostomy Status: Chronic (2) Diabetes Status: Chronic Qualifiers: Diabetes mellitus type: type 2 Diabetes mellitus [facility] with [facility] Diabetes mellitus complication status: with hyperglycemia Qualified Code(s): E11.65 - Type 2 diabetes mellitus with hyperglycemia; 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 (3) History of pulmonary embolus (PE) Status: Resolved (4) DVT prophylaxis Status: Acute (5) Dysphagia Status: Acute Qualifiers: Dysphagia type: pharyngeal phase Qualified Code(s): R13.13 - Dysphagia, pharyngeal phase (6) Acute respiratory failure Status: Acute Qualifiers: Respiratory failure complication: hypoxia Qualified Code(s): J96.01 - Acute respiratory failure with hypoxia (7) CHF exacerbation Status: Ruled-out Qualifiers: Heart failure type: diastolic Qualified Code(s): I50.33 - Acute on chronic diastolic (congestive) heart failure (8) Aspiration pneumonia Status: Acute Qualifiers: Aspiration pneumonia type: due to regurgitated food (9) Hadley-hadley disease Status: Chronic (10) Morbid obesity Status: Chronic (11) Hypokalemia Status: Resolved (12) Open wound of heel Status: Acute Qualifiers: Encounter type: subsequent encounter Laterality: right Qualified Code(s): S91.301D - Unspecified open wound, right foot, subsequent encounter (13) Hypertension Status: Chronic Qualifiers: Hypertension type: essential hypertension Qualified Code(s): I10 - Essential (primary) hypertension (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 Bautista is a 68 year old male - Time Spent with Patient Total time spent providing and/or coordinating discharge services: my time is 34min Date of admission: 07/29/18 16:26 Primary care physician: Richard Ying MD Consults: 07/29/18 16:17 Consult to Nutrition [CONS] Routine Comment: Consulting Provider: NUTRITION Reason for Dietary Consult: MST Score 07/29/18 16:24 Consult to ENT [CONS] Routine Consulting Provider: [facility] [place] Reason for Consult: SOB. transfer from [place] whom spoke with Dr. Justin Ramirez. recent trach change from 6 to 8 Call Completed: Yes 07/29/18 17:40 Consult to Speech Therapy [CONS] Routine Comment: Evaluate, develop and implement POC Reason for Consult: dysphagia. Please insert passgabi. Hx trach Call Completed: No Consult to Wound Care [CONS] Routine Reason for Consult: wounds on heel Call Completed: No 07/29/18 17:45 Consult to Occupational Therapy [CONS] Routine Comment: Evaluate, develop and implement POC Reason for Consult: weakness Does patient have active BEDREST order?: No Is patient medically & hemodynamically stable?: Yes Consult to Physical Therapy [CONS] Routine Comment: Evaluate, develop and implement POC Reason for Consult: weakness Does patient have active BEDREST order?: No Is patient medically & hemodynamically stable?: Yes - Constitutional Vitals: Temp Pulse Resp BP Pulse Ox 97.8 F 70 16 144/69 95 08/02/18 07:29 08/02/18 07:29 08/02/18 15:29 08/02/18 07:29 08/02/18 15:29 - Attending Attestation I examined this patient and my medical decision-making was reviewed with the Resident Physician on 08/02/18. I agree with the documented findings, disposition and treatment plan as described except to the extent set forth mukul agosto. Mr Abernathy has been admitted for acute resp failure from asp pneumonia. He has improved with adjustment of diet and abx. He is interactive and appears to be baseline. He is afebrile and ready for discharge to SNF when arranged. Exam as above. Plan d/c today if possible. Pt discharged on 08/03 when approval for SNF obtained.
--- NOTE | 2018-08-02 18:49 | Physician Discharge Referral ---
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 (7) History of pulmonary embolus (PE) Priority: Secondary Status: Resolved (8) Hypertension Priority: Secondary Status: Chronic (9) Hypokalemia Priority: Secondary Status: Resolved (10) Open wound of heel Priority: Secondary Status: Acute (11) STEPHANIE (obstructive sleep apnea) Priority: Secondary Status: Chronic Prognosis: Fair Aware of Diagnosis: Patient Aware of Prognosis: Patient - Transfer Medications Home Medications: Levothyroxine [Synthroid] 50 mcg PO QAM 08/23/16 [History] Tramadol HCl [Ultram] 50 mg PO BID PRN 08/23/16 [History] Clobetasol Propionate [Temovate] 1 appl TP DAILY PRN 07/29/18 [History] Furosemide [Lasix] 40 mg PO DAILY 07/29/18 [History] Rivaroxaban [Xarelto] 20 mg PO QPM 07/29/18 [History] Aspirin 81 mg PO DAILY 07/30/18 [History] Atorvastatin [Lipitor] 40 mg PO DAILY 07/30/18 [History] Cholecalciferol (Vitamin D3) [Vitamin D3] 1,000 unit PO DAILY 07/30/18 [History] Citalopram Hydrobromide [Celexa] 20 mg PO BID 07/30/18 [History] Desoximetasone 1 appl TP DAILY 07/30/18 [History] Melatonin [Melatin] 3 mg PO HS 07/30/18 [History] Multivit-Min/FA/Lycopen/Lutein [Centrum Silver Men Tablet] 1 tab PO DAILY 07/30/18 [History] Sennosides [Senokot] 8.6 mg PO DAILY PRN 07/30/18 [History] Vitamin A 10,000 unit PO DAILY 07/30/18 [History] Vitamin B Complex [B Complex] 1 tab PO DAILY 07/30/18 [History] hydroCHLOROthiazide [Hydrochlorothiazide] 25 mg PO DAILY 07/30/18 [History] Acetaminophen [Tylenol] 650 mg PO Q6HR PRN tablet 08/02/18 [Rx] Amoxicillin/Clavulanate [Augmentin] 875 mg PO BIDWM tablet 08/02/18 [Rx] Insulin DETEMIR [Levemir] 40 unit SQ BID [id number] 08/02/18 [Rx] Insulin LISPRO [HumaLOG] 0 units SQ TIDAC vial 08/02/18 [Rx] Leptospermum Honey [Medihoney] 1 appl TP 2100 tube 08/02/18 [Rx] Losartan [Cozaar] 50 mg PO DAILY tablet 08/02/18 [Rx] predniSONE [PredniSONE] 40 mg PO DAILY tablet 08/02/18 [Rx] Allergies/Adverse Reactions: Allergy/AdvReac Type Severity Reaction Status Date / Time No Known Allergies Allergy Verified 07/30/18 16:48 - Respiratory Orders Other (Trach collar overnight as needed.) Smoking Cessation: Smoking cessation has been advised. For more information, call the [place] Tobacco Quit Line at 0-566-CZYP-NOW. - Advance Directives Code Status: Full Code - Mobility Orders Other (Per physical therapy/occupational therapy.) - Rehabiliation Orders Rehab Potential: Fair Rehab Orders: ROM Exercises, Evaluation for Physical Therapy, Evaluation for Occupational Therapy, Evaluation for Speech Therapy - Diet Orders Mechanical Soft (Soft diet with honey thickened liquids.) CERTIFICATION: I certify that the transfer of the above named patient to an Extended Care Facility is necessary for the continuing treatment of the diagnosis listed. The above information is true and accurate reflection of patient's current condition. Confidential - Redisclosure prohibited without a patient's written consent.
[2018-08-02] MEDS: Leptospermum Honey Gel 44 ML TUBE TP SCH (20:45)
[2018-08-02] MEDS: DESOXIMETASONE 0.25% TP SCH ×2 (20:45)
[2018-08-02] MEDS ORDERED: Insulin LISPRO 300 UNITS/3 ML VIAL SQ SCH (21:00)
[2018-08-03 00:28] LABS: Bilirubin,Urine Negative (Negative); Blood,Urine Large (Negative); Clarity,Urine Cloudy (Clear); Color,Urine Yellow (Yellow); Glucose,Urine (UA) >=1000 mg/dL (Normal); Ketones,Urine Negative (Negative); Leukocyte Esterase,Urine Small (Negative); Nitrite,Urine Negative (Negative); PH,Urine 6.5 pH Units (5.0-8.0); Protein,Urine 100 mg/dL (Neg-Trace); Specific Gravity,Urine > 1.030 (1.010-1.025); Urobilinogen,Urine Normal (Normal)
[2018-08-03 00:32] LABS: Bacteria,Urine None Seen per hpf (None-Few); Hyaline Casts,Urine None Seen per lpf (None-Few); RBC,Urine TNTC per hpf (0-3); Squamous Epithelial Cell,Urine Many per lpf (None-Few); WBC,Urine 15-30 per hpf (0-3)
[2018-08-03] MEDS: Ipratropium/Albuterol Neb 3 ML IH SCH ×4 (03:46→15:33)
[2018-08-03 05:31] LABS: Basophils % 0.2 %; Eosinophils # 0.2 K/mcL (0.0-0.6); Eosinophils % 1.8 %; Hematocrit 33.8 % (37.5-50.1); Hemoglobin 10.9 g/dL (12.9-16.9); Immature Granulocytes % 0.5 % (0-4); Lymphocytes # 2.2 K/mcL (0.6-4.6); Lymphocytes % 18.8 %; Mean Corpuscular HGB Conc 32.2 g/dL (31.6-35.5); Mean Corpuscular Hemoglobin 25.7 pg (28.0-33.3); Mean Corpuscular Volume 79.7 fL (83.0-100.0); Mean Platelet Volume 9.3 fL (9.4-12.4); Platelet Count 230 K/mcL (140-400); Red Blood Count 4.24 M/mcL (4.19-5.50); Red Cell Distribution Width 15.4 % (11.5-14.5); Segmented Neutrophils % 69.7 %; White Blood Count 11.4 K/mcL (4.3-11.1)
[2018-08-03 05:48] LABS: BUN/Creatinine Ratio 26 (6-26); Blood Urea Nitrogen 19 mg/dL (8-23); Calcium 8.4 mg/dL (8.6-10.3); Carbon Dioxide 28 mEq/L (23-29); Chloride 102 mEq/L (98-107); Glucose 187 mg/dL (70-105); Osmolality,Calculated 283 (280-300); Potassium 3.6 mEq/L (3.5-5.1); Sodium 133 mEq/L (136-145); eGFR For African Americans > 60 (> 60); eGFR For Non-African Americans > 60 (> 60)
[2018-08-03 07:27] VITALS: BP 164/91
[2018-08-03] MEDS: Leptospermum Honey Gel 44 ML TUBE TP SCH (07:49)
[2018-08-03] MEDS: Insulin DETEMIR 100 UNIT/ML X5UNITS SQ SCH (08:01)
[2018-08-03] MEDS: Insulin LISPRO 300 UNITS/3 ML VIAL SQ SCH ×2 (08:01→11:35)
[2018-08-03] MEDS: Aspirin Enteric Coated 81 MG Tablet PO SCH (08:02)
[2018-08-03] MEDS: predniSONE 20 MG TABLET PO SCH (08:02)
[2018-08-03] MEDS: *HR* Rivaroxaban 10 MG TABLET PO SCH (08:02)
[2018-08-03] MEDS: DESOXIMETASONE 0.25% TP SCH (08:03)
--- NOTE | 2018-08-03 08:36 | Internal Med Progress Note ---
Hospitalist Progress Note - Encounter Date of Encounter: 08/03/18 Time of Encounter: 08:34 - Subjective Interval History: Patient was seen and examined at bedside this morning. He was awake, sitting in a chair next to bedside, and no acute distress. Vitals hemodynamically stable. Lab work essentially benign. Patient resting comfortably doing well. No acute complaints. He is currently awaiting placement at [facility]. He has been accepted to facility, and is awaiting insurance authorization. prop worker is on board and following. Regarding this patient's blood glucose, he was noted to have improved glucose this morning. As of this morning we have switched his long-acting insulin to Levemir 40 units twice a day. He will be discharged with Levemir 40 units twice a day. Otherwise, patient did note that he had irritation with his Ramires catheter as of yesterday. Ramires was replaced, and patient is no longer experiencing symptoms today. He otherwise denies any headaches, blurry vision, chest pain, respiratory distress, difficulty breathing, abdominal pain, nausea, vomiting, diarrhea. With insurance approval and acceptance a [facility] facility, patient is ready for discharge. Please see discharge summary from 08/02/18 at time of discharge. Patient was seen this morning but was discharged yesterday and is currently awaiting basement at [facility] facility. - Exam Vitals: Temp Pulse Resp BP Pulse Ox 98.3 F 69 17 164/91 96 08/03/18 07:23 08/03/18 07:23 08/03/18 07:42 08/03/18 07:23 08/03/18 07:42 Exam: GEN: 68-year-old male who is resting comfortably at bedside. Vitals stable. No acute distress. AAOx3. Morbidly obese. HEENT: Atraumatic, Normocephalic, PERRLA, EOMI. Tracheostomy in place. Breathing comfortably. NECK: Supple, no lymphadenopathy, no JVD CARDIAC: RRR, s1 and s2 present, no murmurs, rubs, gallops PULM: CTAB, not in respiratory distress, no wheezes, rales, crackles, rhonchi ABD: Soft, non-tender, non-distended, no guarding or rebound tenderness. Bowel sounds present. EXT: No peripheral edema. No calf tenderness, cyanosis, clubbing NEURO: CN 2-12 grossly intact. No focal neurologic deficits. Follows commands PSYCH: Appropriate mood and affect - Assessment and Plan (1) Acute respiratory failure Current Visit: Yes Status: Acute Assessment and Plan: This is a 68-year-old male past medical history of tracheostomy, diabetes, Yelitza Yelitza disease, hypertension, hypothyroidism, STEPHANIE, DVT/PE on Xarelto who initially presented from [facility] for further ENT evaluation after episode of aspiration of food with speech therapy after multiple attempts at feeding which caused coughing episodes. - Acute respiratory failure was likely secondary to aspiration secondary to dysphagia - Initial vitals on admission showed patient was hemodynamically stable with appropriate oxygen saturation on 6 L trach collar - Patient was afebrile with mild leukocytosis = 14.3 - Chest x-ray: no acute cardiopulmonary process, low lung volumes - Echo: LVEF = 60-65%. Mild left ventricular diastolic dysfunction. Doppler does not suggest moderate left ventricular outflow tract obstruction - Strep and legionella urine antigens negative - Sputum culture negative thus far - Patient initially received Zosyn prior to transfer PLAN: - Acute respiratory failure is likely secondary to aspiration pneumonia secondary to dysphagia. Patient is improving. Currently with oxygen saturation appropriate on room air during daytime. - We will continue with Augmentin 875 mg twice a day and treat until 08/05/18 - Additionally will continue with prednisone 40 mg daily until 08/03/18 - DuoNeb's as needed - Supplements oxygen as needed especially at night - Monitor for worsening respiratory status (2) Aspiration pneumonia Current Visit: Yes Status: Acute Assessment and Plan: Suspected aspiration pneumonia given patient's dysphagia on presentation - Chest x-ray did show no acute cardiopulmonary process - Legionella and strep antigen is negative - Sputum culture was no growth to date PLAN: - Continue with plan as above - Treat with Augmentin twice a day (3) Dysphagia Current Visit: Yes Status: Acute Assessment and Plan: Per patient, dysphagia has persisted since his trach size was changed at his ENT appointment about one week prior to presentation. - Patient was seen and evaluated by ENT. Trach size was readjusted - Additionally was seen and evaluated by speech therapy. Recommendation for advance soft diet and nectar thick liquids. Passay-Anamika valve adjusted. PLAN: - Diet per speech therapy recommendations. Continue with nectar thick liquids and advance soft diet - ENT on board. Recommendations appreciated - Speech therapy on board. Recommendations appreciated. (4) Diabetes Current Visit: Yes Status: Chronic Assessment and Plan: History of type 2 diabetes. - Had been treated with 70/30 insulin prior to admission. - On admission, was treated with Levemir and low-dose insulin sliding scale - Currently treated with Levemir 35 units twice a day and medium dose sliding scale - Sugars are persistently elevated throughout the day PLAN: - We will increase to Levemir 40 units twice a day at time of discharge - Continue medium dose insulin sliding scale - Diabetic diet - Accu-Cheks before meals at bedtime (5) CHF exacerbation Current Visit: Yes Status: Ruled-out Assessment and Plan: CHF exacerbation was suspected the time of admission - Patient has not been fluid overloaded - Echo: LVEF 66 5%. Mild left ventricular diastolic dysfunction. Moderate left ventricular outflow tract obstruction. PLAN: - Monitor for worsening signs and symptoms. - Monitor for signs of fluid overload - No diuresis needed at this time. (6) Hypertension Current Visit: Yes Status: Chronic Assessment and Plan: Controlled PLAN: - Cont home medications (7) STEPHANIE (obstructive sleep apnea) Current Visit: Yes Status: Chronic Assessment and Plan: History of obstructive sleep apnea - Likely contributes to hypertension - Likely secondary to morbid obesity - Patient currently has trach collar (8) Open wound of heel Current Visit: Yes Status: Acute Assessment and Plan: Right heel wound that was present on admission. Has been treating at home. PLAN: - Wound care on board. 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 - Routine wound care as needed. (11) DVT prophylaxis Current Visit: Yes Status: Acute Assessment and Plan: PLAN: - Cont Xarelto DVT Prophylaxis: Xarelto - Time Spent with Patient Total time spent is greater than 50% in coordination of care (as documented) at patient's floor/unit and/or counseling patient: less than 15 minutes Plan of Care Discussed with: patient Internal Medicine: Result - Labs CBC & Chem 7: 08/03/18 05:17 08/03/18 05:17 Labs: Short CBC 08/03/18 Range/Units 05:17 WBC 11.4 H (4.3-11.1) K/mcL Hgb 10.9 L (12.9-16.9) g/dL Hct 33.8 L (37.5-50.1) % Plt Count 230 (140-400) K/mcL Neutrophils # 8.0 (1.6-8.9) K/mcL BMP 08/03/18 05:17 Sodium 133 L Potassium 3.6 Chloride 102 Carbon Dioxide 28 BUN 19 Creatinine 0.72 Glucose 187 H Calcium 8.4 L Urine 08/02/18 Range/Units 23:38 Urine Color Yellow (Yellow) Urine Clarity Cloudy A (Clear) Urine pH 6.5 (5.0-8.0) pH Units Ur Specific [place] > 1.030 H (1.010-1.025) Urine Protein 100 H (Neg-Trace) mg/dL Urine Glucose (UA) >=1000 H (Normal) mg/dL - ABG Interpretation ABG results: PT/INR, D-dimer PT 15.4 Seconds (9.4-12.1) H 07/29/18 16:36 Consult Discharge Plan - Plan Instructions: Aspiration Pneumonia (DC) Referrals: Richard Ying MD [Primary Care Provider] - (1) Acute respiratory failure Qualifiers: Respiratory failure complication: hypoxia Qualified Code(s): J96.01 - Acute respiratory failure with hypoxia (2) Aspiration pneumonia Qualifiers: Qualified Code(s): J69.0 - Pneumonitis due to inhalation of food and vomit (3) Dysphagia Qualifiers: Dysphagia type: pharyngeal phase Qualified Code(s): R13.13 - Dysphagia, pharyngeal phase (4) Diabetes Qualifiers: Diabetes mellitus type: type 2 Diabetes mellitus care home insulin use: with care home use Diabetes mellitus complication status: with hyperglycemia Qualified Code(s): E11.65 - Type 2 diabetes mellitus with hyperglycemia; Z79.4 - snf (current) use of insulin (5) CHF exacerbation Qualifiers: Heart failure type: diastolic Qualified Code(s): I50.33 - Acute on chronic diastolic (congestive) heart failure (6) Hypertension Qualifiers: Hypertension type: essential hypertension Qualified Code(s): I10 - Essential (primary) hypertension (8) Open wound of heel Qualifiers: Encounter type: subsequent encounter Laterality: right Qualified Code(s): S91.301D - Unspecified open wound, right foot, subsequent encounter
[2018-08-03] MEDS ORDERED: Insulin DETEMIR 100 UNIT/ML X5UNITS SQ SCH (09:00)
== END 2018-08-03 16:40 | DRG 177 ==
LOC: 2NENU → SUATTDRO 16:26
PROVIDERS: ADMIT Internal Medicine; ATTEND Internal Medicine